=== PATIENT | female | born 1955 | race African-American/Black ===

== ENCOUNTER 2020-02-20 00:34 | Outpatient (CLI) | payer MEDICARE, SELFPAY ==
[2020-02-20 18:51] LABS: SARS-CoV-2 RNA PCR Negative
== END 2020-02-20 00:35 | disposition home or self-care (01) ==
LOC: ANHCOVIDDT 00:34
PROVIDERS: Visit Provider Internal Medicine Gastroenterology
DX: Z01.812 Encounter for preprocedural laboratory examination (principal); Z20.828 Contact with and (suspected) exposure to other viral communicable diseases
CPT/HCPCS: 87635; C9803; U0003

== ENCOUNTER 2020-02-21 12:19 | Outpatient (CLI) | payer MEDICARE, SELFPAY ==
--- NOTE | ~2020-02-21 | MM_ITS ---
CORRECTED REPORT DESCRIPTION CORRECTED. 02/21/2020 EXAMINATION: MM screening mammo BI HISTORY: Screening TECHNIQUE: Craniocaudal and mediolateral oblique 3-D tomosynthesis images were obtained and synthetic 2-D images were generated. CAD analysis was submitted and interpreted. COMPARISON: Comparison to multiple prior studies sequentially, with oldest reviewed study dated 10/25/2012. BREAST PARENCHYMAL COMPOSITION: There are scattered areas of fibroglandular density. FINDINGS: Stable benign-appearing breast calcifications. There is no evidence of suspicious mass, calcification, or architectural distortion to suggest malignancy in either breast. There has been no suspicious interval change. IMPRESSION: 1. No mammographic evidence of malignancy. 2. Recommend routine screening mammography in one year. BI-RADS Category 2: Benign finding(s). Reviewed, dictated and finalized at location D. [employer]ODUCTION ENGINE[employer] MTDD
== END 2020-02-21 12:20 | disposition home or self-care (01) ==
LOC: ANHIMG 12:24
PROVIDERS: Visit Provider Student in an Organized Health Care Education/Training Program
DX: Z12.31 Encounter for screening mammogram for malignant neoplasm of breast (principal)
CPT/HCPCS: 77063; 77067

== ENCOUNTER 2020-02-23 01:26 | Day surgery (SDC) | payer MEDICARE, SELFPAY ==
[2020-02-14 14:59] VITALS: BMI 32.2
[2020-02-23 13:04] LABS: Glucose Point of Care 81 (65-105)
[2020-02-23 13:05] VITALS: BP 179/66; PULSE 70; RESP 20; TEMP 36.8; O2SAT 100; BMI 30.1
[2020-02-23] MEDS: LACTATED RINGERS 1,000 ML 150 ML IV CONT (13:09)
--- NOTE | 2020-02-23 13:20 | WPDANESEPPF ---
Anes - Initial Pre Proc Eval Procedure: Operation Date: 02/23/20 14:00 Proposed Procedures p Screening Colonoscopy - Tomas Temple MD Date/Time: 02/23/20 13:20 Surgeon: Tomas Temple MD Pre Op Diagnosis: Neoplasm Screening Patient Data Age: 65 Gender: F Height: 5 ft 2 in Weight: 74.8 kg Last Vital Signs Temp 98.2 F 02/23/20 13:05 Pulse 70 02/23/20 13:05 Resp 20 02/23/20 13:05 BP 179/66 H 02/23/20 13:05 Pulse Ox 100 02/23/20 13:05 Allergies Allergy/AdvReac Type Severity Reaction Status Date / Time No Known Allergies Allergy Verified 02/23/20 13:04 Home Medications Medication Instructions Recorded Confirmed Type amlodipine 10 mg tablet 10 mg PO DAILY 01/23/20 02/14/20 History atorvastatin 10 mg tablet 10 mg PO DAILY 01/23/20 02/14/20 History empagliflozin 10 mg tablet 10 mg PO DAILY 01/23/20 02/14/20 History hydralazine 10 mg tablet 10 mg PO BID 01/23/20 02/14/20 History hydrochlorothiazide 12.5 mg capsule 12.5 mg PO DAILY 01/23/20 02/14/20 History metformin 500 mg tablet 500 mg PO BID 01/23/20 02/14/20 History montelukast 10 mg tablet 10 mg PO DAILY 01/23/20 02/14/20 History peg 3350 240 gram-electrolytes 240 ml PO Q10M #4000 ml 01/23/20 Rx 22.72 gram-6.72 g-5.84 g powdr for soln pyridoxine (vitamin B6) 50 mg 50 mg PO DAILY 01/23/20 History capsule sodium,potassium,mag sulfates 17.5 354 ml PO .COMPLEX #354 ml 01/30/20 02/14/20 Rx gram-3.13 gram-1.6 gram oral soln metoprolol succinate 50 mg PO DAILY 02/14/20 02/14/20 History Laboratory Tests 02/23/20 13:02 POC Capillary Glucose 81 mg/dl mg/dl (65-105) Patient hx anesthesia problems: none Family hx anesthesia problems: none PMFSH Past Medical History Medical History (Updated 01/23/20 @ 09:48 by Lashawn Conner MA) Asthma Back problem DISH (diffuse idiopathic skeletal hyperostosis) Hyperlipidemia Hypertension Surgical History Surgical History H/O: hysterectomy History of back surgery History of knee surgery Family History Family History (Updated 01/23/20 @ 09:50 by Lashawn Conner MA) Mother Diabetes mellitus, Onset Age: 72 Heart disease Sibling Diabetes mellitus Hypertension Kidney disease Pancreatic disease Father Patient's father is , Onset Age: 68 Acute myocardial infarction Heart disease Social History Social History Smoking status: Never smoker Second hand tobacco smoke exposure: No Alcohol intake: current Alcohol use details: Rarely Substance use type: does not use Living arrangements: alone Spiritual care concerns: No Anes - Eval Final PreProcedure Day of Procedure 02/23/20 13:20 Patient weight: normal Heart: regular rate and rhythm Lungs: clear to auscultation Airway: Mallampati scale class IV (decreased ROM; no extention or lateral rotation; history of difficult intubation) Neurological: alert and oriented Last oral intake: >/= 8 hours ASA classification: III Emergent: no Anesthetic plan: proceed Anesthesia type and monitoring: general GIVS and standard monitoring Informed Consent: The patient's anesthetic plan and its attendant risks and benefits were discussed with the patient/family/POA. Questions were solicited and answers provided to the satisfaction of the patient/family/POA.
--- NOTE | 2020-02-23 13:34 | PM.HPGS ---
History of Present Illness History of Present Illness Consent: Risks, benefits, and alternatives have been discussed and questions answered. Patient agrees to proceed with procedure. Chief complaint: Neoplasm Screening Narrative: Leydi Null is a 65 year old female here for screening colonoscopy, last one 5 years ago. Review of Systems Constitutional: Constitutional: Denies headache(s) and Denies weakness Eyes: Eyes: Denies blurry vision ENT: Reports Normal hearing present, Denies headache(s) and Denies neck pain Cardiovascular: Cardiovascular: Denies chest pain and Denies dyspnea Respiratory: Respiratory: Denies dyspnea Gastrointestinal: Gastrointestinal: Reports no additional gastrointestinal complaints Genitourinary: Genitourinary: Denies dysuria Musculoskeletal: Musculoskeletal: Denies neck pain Integumentary/Breasts: Skin/Breast: Denies dry skin Neurologic: Reports Normal hearing present, Denies headache(s) and Denies weakness Psychiatric: Psychiatric: Denies anxiety Endocrine: Endocrine: Denies change in body appearance Hematologic/Lymphatic: Hematologic/Lymphatic: Denies easy bleeding Allergic/Immunologic: Allergic/Immunologic: Denies urticaria PMFSH Past Medical History Medical History (Updated 02/23/20 @ 13:35 by Tomas Temple MD) Asthma Back problem Colon cancer screening DISH (diffuse idiopathic skeletal hyperostosis) Hyperlipidemia Hypertension Surgical History Surgical History H/O: hysterectomy History of back surgery History of knee surgery Family History Family History (Updated 01/23/20 @ 09:50 by Lashawn Conner MA) Mother Diabetes mellitus, Onset Age: 72 Heart disease Sibling Diabetes mellitus Hypertension Kidney disease Pancreatic disease Father Patient's father is , Onset Age: 68 Acute myocardial infarction Heart disease Social History Social History Smoking status: Never smoker Second hand tobacco smoke exposure: No Alcohol intake: current Alcohol use details: Rarely Substance use type: does not use Living arrangements: alone Spiritual care concerns: No Meds Home Medications and Allergies Home Medications Medication Instructions Recorded Confirmed Type amlodipine 10 mg tablet 10 mg PO DAILY 01/23/20 02/14/20 History atorvastatin 10 mg tablet 10 mg PO DAILY 01/23/20 02/14/20 History empagliflozin 10 mg tablet 10 mg PO DAILY 01/23/20 02/14/20 History hydralazine 10 mg tablet 10 mg PO BID 01/23/20 02/14/20 History hydrochlorothiazide 12.5 mg capsule 12.5 mg PO DAILY 01/23/20 02/14/20 History metformin 500 mg tablet 500 mg PO BID 01/23/20 02/14/20 History montelukast 10 mg tablet 10 mg PO DAILY 01/23/20 02/14/20 History peg 3350 240 gram-electrolytes 240 ml PO Q10M #4000 ml 01/23/20 Rx 22.72 gram-6.72 g-5.84 g powdr for soln pyridoxine (vitamin B6) 50 mg 50 mg PO DAILY 01/23/20 History capsule sodium,potassium,mag sulfates 17.5 354 ml PO .COMPLEX #354 ml 01/30/20 02/14/20 Rx gram-3.13 gram-1.6 gram oral soln metoprolol succinate 50 mg PO DAILY 02/14/20 02/14/20 History Allergies Allergy/AdvReac Type Severity Reaction Status Date / Time No Known Allergies Allergy Verified 02/23/20 13:04 Vital Signs Vital Signs - 24 hr 02/23/20 13:05 Temperature 98.2 F Pulse Rate 70 Respiratory Rate 20 Blood Pressure 179/66 H Pulse Oximetry 100 Exam Const: General: comfortable and no acute distress HENMT: General nose exam: Normal nares present Eyes: General: appearance normal, both eyes and all related structures Neck: Neck: no JVD Resp: Auscultation: clear to auscultation bilaterally Cardio: Rate: regular rate Rhythm: regular rhythm GI: Inspection: non-distended GI Palp: Yes Soft to palpation Skin: General skin exam: normal col
[2020-02-23 13:59] VITALS: BP 106/48; PULSE 76; RESP 21; O2SAT 99
[2020-02-23 14:09] VITALS: BP 153/70; PULSE 77; RESP 23; O2SAT 100
== END 2020-02-23 14:37 | disposition home or self-care (01) ==
PROVIDERS: Visit Provider Internal Medicine Gastroenterology
PROC: 0DJD8ZZ Inspection of Lower Intestinal Tract, Via Natural or Artificial Opening Endoscopic (ICD-10-PCS; CPT 45378; principal; 2020-02-23 14:00)
DX: Z12.11 Encounter for screening for malignant neoplasm of colon (principal); D12.2 Benign neoplasm of ascending colon; Z79.84 Long term (current) use of oral hypoglycemic drugs; J45.909 Unspecified asthma, uncomplicated; M48.10 Ankylosing hyperostosis [Forestier], site unspecified; E78.5 Hyperlipidemia, unspecified; I10 Essential (primary) hypertension; K57.30 Diverticulosis of large intestine without perforation or abscess without bleeding; K64.8 Other hemorrhoids
CPT/HCPCS: 45380; 88305; J2704; J7120

== ENCOUNTER 2020-08-05 10:02 | Outpatient (CLI) | payer MEDICARE, SELFPAY ==
--- NOTE | ~2020-08-05 | DEXA_ITS ---
Bone Density Report Name: Leydi Null Age: 65 Sex: Female Ethnicity: Black Date of : 1955 Indication: monitoring treatment; height loss; prior fracture; asthma or emphysema; hysterectomy; Referring Provider: Brenna Reed Study: Bone densitometry was performed. Exam Date: August 05, 2020 Accession number: [id number] Bone Density: Region BMD T-score Z-score Classification Femoral Neck (Left) 1.006 1.4 1.7 Normal Total Hip (Left) 1.076 1.1 1.3 Normal Total Hip Bilateral Avg 1.054 0.9 1.2 Normal Femoral Neck (Right) 1.043 1.7 2.0 Normal Total Hip (Right) 1.032 0.7 1.1 Normal World Health Organization criteria for BMD impression classify patients as: Normal (T-score at or above -1.0), Osteopenia (T-score between -1.0 and -2.5), or Osteoporosis (T-score at or below -2.5). 10-year Fracture Risk: FRAX not reported because: All T-scores for Spine Total, Hip Total, Femoral Neck at or above -1.0 Prior hip or vertebral fracture Treated for osteoporosis Previous Exams: Region Exam Age BMD T-score BMD Change BMD Change Date g/cm2 vs Baseline vs Previous Total Hip(Left) 08/05/2020 65 1.076 1.1 -0.099(-8.4%)# -0.070(-6.1%)* 01/25/2018 63 1.146 1.7 -0.029(-2.5%)# 0.029(2.6%)# 10/23/2014 59 1.118 1.4 -0.058(-5.0%)* -0.058(-5.0%)* 10/14/2011 56 1.176 1.9 Total Hip(Right) 08/05/2020 65 1.032 0.7 -0.026(-2.4%)# -0.084(-7.5%)* 01/25/2018 63 1.116 1.4 0.058(5.5%)# -0.074(-6.2%)# 10/23/2014 59 1.191 2.0 0.133(12.5%)* 0.133(12.5%)* 10/14/2011 56 1.058 1.0 *Denotes significance at 95% confidence level, LSC for Total Hip = 0.027 g/cm2 Clinical Information Provided by Patient: Have had a previous hip or vertebral fracture Has had a low trauma fracture Is being treated for osteoporosis Has used the following medications: Calcium Has the following medical conditions: Asthma or Emphysema, Hysterectomy, SPINE IS FUSED Patient maximum height was 64 Menopause Age: 44 No regular weight bearing exercise Onset of menses at age 12 Number of children 0 Impression: The patient has normal bone mass. The patient has risk factors, including: previous fracture. The BMD for the Total Hip(Left) decreased, changing by -6.1% since the last DXA exam. The BMD for the Total Hip(Right) decreased, changing by -7.5% since the last DXA exam. Discussion: SIGNIFICANT BONE LOSS OBSERVED. Adherence to therapy (including calcium and vitamin D intake) should be assessed. If compliance
== END 2020-08-05 10:03 | disposition home or self-care (01) ==
LOC: ANHIMG 10:07
PROVIDERS: Visit Provider Student in an Organized Health Care Education/Training Program
DX: Z78.0 Asymptomatic menopausal state (principal)
CPT/HCPCS: 77080

== ENCOUNTER 2020-09-11 12:53 | Outpatient (CLI) | payer MEDICARE, SELFPAY ==
--- NOTE | ~2020-09-11 | US_ITS ---
EXAMINATION: US carotid duplex BI DATE: 09/11/2020 13:25 INDICATION: Carotid bruit TECHNIQUE: Grayscale, color Doppler, and pulsed Doppler images of the cervical carotid arteries were obtained. The degree of vessel stenosis is placed in one of the following categories: normal, <50%, 5 0-69%, >=70% but less than near-occlusion, near-occlusion, or total occlusion. Note that percent sten osis relative to normal distal artery lumen diameter is indirectly measured from velocity measurement s as described by Mc, et al. Radiology 2003; 229:340-346. COMPARISON: None. FINDINGS: RIGHT: The right common carotid artery (CCA) peak systolic velocity (PSV) is 100 cm/s. The right internal ca rotid artery (ICA) PSV is 128 cm/s. The right ICA end-diastolic velocity (EDV) is 19 cm/s. The right ICA/CCA PSV ratio is 1.3. Grayscale and color Doppler images yield an estimate of <50% diameter reduc tion from plaque in the ICA. The external carotid artery (ECA) PSV is 139 cm/s. There is antegrade fl ow in the right vertebral artery. LEFT: The left CCA PSV is 114 cm/s. The left ICA PSV is 130 cm/s. The left ICA EDV is 31 cm/s. The left ICA /CCA PSV ratio is 1.1. Grayscale and color Doppler images yield an estimate of <50% diameter reductio n from plaque in the ICA. The ECA PSV is 85 cm/s. There is antegrade flow in the left vertebral arter y. IMPRESSION: 1. <50% stenosis in the right internal carotid artery. 2. <50% stenosis in the left internal carotid artery. Reviewed, dictated and finalized at location A.
== END 2020-09-11 12:54 | disposition home or self-care (01) ==
DX: R09.89 Other specified symptoms and signs involving the circulatory and respiratory systems (principal); I65.23 Occlusion and stenosis of bilateral carotid arteries
CPT/HCPCS: 93880

== ENCOUNTER 2020-10-13 13:52 | Observation (INO) | payer MEDICARE, SELFPAY ==
[2020-10-13] VITALS (9 sets, daily range): BP systolic 93–151; BP diastolic 37–85; PULSE 70–82; RESP 16–24; TEMP 36.1–36.4; O2SAT 96–100; BMI 30.3
--- NOTE | ~2020-10-13 | XR_ITS ---
EXAMINATION: XR chest 2V DATE: 10/13/2020 15:37 INDICATION: Hypotension and weakness TECHNIQUE: AP and lateral views of the chest are obtained. COMPARISON: 02/04/2013 FINDINGS: There are airspace opacities in the left lower lobe. There is no pleural effusion or pneumo thorax. The cardiomediastinal silhouette is normal. There is moderate thoracic spondylosis. There is posterior thoracolumbar fusion. 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 There are also par tially imaged changes of posterior fusion in the cervical spine. IMPRESSION: 1. Left lower lobe airspace opacities, likely pneumonia. Reviewed, dictated and finalized at location A.
--- NOTE | 2020-10-13 14:17 | ECG_ITS ---
Measurements Intervals [place] Rate: 74 P: 66 ID: [id number] QRS: 20 QRSD: 82 T: 112 QT: 399 QTc: 445 Interpretive Statements SINUS RHYTHM ATRIAL PREMATURE COMPLEXES EARLY PRECORDIAL R/S TRANSITION LEFT VENTRICULAR HYPERTROPHY AND ST-T CHANGE BASELINE ARTIFACT- V6 BORDERLINE ECG Electronically Signed On 10-13-2020 17:46:41 CDT by Jhon Acosta D.O.
[2020-10-13 14:39] LABS: Basophils Percent Auto 0.2 % (0.2-1.2); Eosinophils Percent Auto 0.2 % (0-4.4); Immature Granulocyte Absolute 0.01 K/mm3 (0.00-0.031); Immature Granulocyte Percent A 0.2 % (0-0.5); Lymphocytes Absolute Auto 0.37 K/mm3 (0.9-3.2); Lymphocytes Percent Auto 7.2 % (18.3-44.2); Mean Corpuscular HGB Conc 32.4 g/dl (32-36); Mean Corpuscular Hemoglobin 31.3 pg (26-34); Mean Corpuscular Volume 96.6 fl (80-100); Mean Platelet Volume 11.1 fl (7.4-10.4); Monocytes Absolute Auto 0.3 K/mm3 (0.1-0.6); Monocytes Percent Auto 5.2 % (2.6-8.5); Neutrophils Absolute Auto 4.5 K/mm3 (1.3-6.7); Platelet Count Result 168 k/mm3 (150-375); Red Blood Count 3.52 M/mm3 (4.2-5.4); Red Cell Distribution Width 13.5 % (11.5-14.5); White Blood Count 5.2 K/mm3 (4.5-10.0)
[2020-10-13 14:49] LABS: Alanine Aminotransferase 27 U/L (4-35); Albumin Level 4.1 g/dL (3.5-5.1); Alkaline Phosphatase 65 U/L (38-126); Anion Gap 13 mmol/L (8-16); Aspartate Amino Transferase 50 U/L (14-36); Bilirubin,Total 0.4 mg/dL (0.2-1.3); Blood Urea Nitrogen 40 mg/dL (7-17); Calcium 9.2 mg/dL (8.4-10.2); Carbon Dioxide 20 mmol/L (22-30); Chloride 109 mmol/L (98-107); Estimated CRCL calculation 20 ml/min; Estimated Glomerular Filt Rate 26; Glucose 114 mg/dL (65-110); Potassium 3.8 mmol/L (3.4-5.0); Sodium 142 mmol/L (137-145)
[2020-10-13 15:34] LABS: Add Urine Microscopic? YES; Appearance Urine Turbid (Clear); Bacteria Urine Trace /hpf; Bilirubin Urine Negative (Negative); Blood Urine Negative (Negative); Color Urine Amber (Yellow); Glucose Urine UA 1+ mg/dL (Negative); Hyaline Casts Urine 30-49 /lpf; Ketones Urine Negative (Negative); Leukocyte Esterase Ur Negative LEU/UL (Negative); Mucus Urine Few /lpf; Nitrate Urine Negative (Negative); Protein Urine 2+ mg/dL (Negative); Specific Grav Ur 1.025 (1.001-1.035); Squamous Epithelial Cell Urine Many /hpf (Few)
[2020-10-13] MEDS: SODIUM CHLORIDE 0.9% IV 1,000 ML 999 ML IV CONT (15:45)
--- NOTE | 2020-10-13 17:18 | ED.GENADULT ---
HPI - General Adult General Chief complaint: Weakness Stated complaint: coughing and tired, from [facility] Time Seen by Provider: 10/13/20 15:13 Source: patient History of Present Illness HPI narrative: Patient is a 65 y/o female complaining of cough with some clear phlegm for last 3 days. She took OTC cough medicine, which provide temporary relief. She has some subjective fever, but did not check her temperature. She also feels weak. She has no chest pain or SOB. Related Data Home Medications Medication Instructions Recorded Confirmed amlodipine 10 mg tablet 10 mg PO DAILY 01/23/20 02/14/20 empagliflozin 10 mg tablet 10 mg PO DAILY 01/23/20 02/14/20 hydralazine 10 mg tablet 10 mg PO BID 01/23/20 02/14/20 hydrochlorothiazide 12.5 mg capsule 25 mg PO DAILY 01/23/20 02/14/20 metformin 500 mg tablet 500 mg PO BID 01/23/20 02/14/20 montelukast 10 mg tablet 10 mg PO DAILY 01/23/20 02/14/20 pyridoxine (vitamin B6) 50 mg 50 mg PO DAILY 01/23/20 capsule metoprolol succinate 50 mg PO DAILY 02/14/20 02/14/20 rosuvastatin mg 10/13/20 Allergies Allergy/AdvReac Type Severity Reaction Status Date / Time No Known Allergies Allergy Verified 10/13/20 14:49 Review of Systems Constitutional: Constitutional: Denies chills, Reports fever(s), Denies headache(s) and Reports weakness Eyes: Eyes: Denies blurry vision ENT: Denies headache(s) and Denies neck pain Cardiovascular: Cardiovascular: Denies chest pain and Denies dyspnea Respiratory: Respiratory: Reports cough and Denies dyspnea Gastrointestinal: Gastrointestinal: Denies abdominal pain, Denies diarrhea, Denies nausea and Denies vomiting Genitourinary: Genitourinary: Denies hematuria and Denies dysuria Musculoskeletal: Musculoskeletal: Denies back pain and Denies neck pain Neurologic: Denies headache(s) and Reports weakness PMFSH Past Medical History Medical History Asthma Back problem Colon cancer screening DISH (diffuse idiopathic skeletal hyperostosis) Hyperlipidemia Hypertension Surgical History Surgical History H/O: hysterectomy History of back surgery History of knee surgery Family History Family History Mother Diabetes mellitus, Onset Age: 72 Heart disease Sibling Diabetes mellitus Hypertension Kidney disease Pancreatic disease Father Patient's father is , Onset Age: 68 Acute myocardial infarction Heart disease Social History Social History Smoking status: Never smoker Second hand tobacco smoke exposure: No Alcohol intake: current Alcohol use details: Rarely Substance use type: does not use Gender identity (if verbalized by the patient): Female Spiritual care concerns: No Exam Const: General: no acute distress and well developed Orientation/consciousness: oriented to person, oriented to place, oriented to time and patient oriented x3 HENMT: Head: normocephalic Ears: external ears normal General nose exam: Normal external nose present Eyes: General: appearance normal, both eyes and all related structures Conjunctivae: conjunctivae normal Neck: Neck: normal visual inspection and full ROM Chest: Chest palpation & inspection: normal inspection of the chest and no tenderness Resp: Effort & Inspection: normal respiratory effort Auscultation: clear to auscultation bilaterally Cardio: Rate: regular rate Rhythm: regular rhythm GI: GI Palp: No abdominal tenderness and Yes Soft to palpation Skin: General skin exam: normal color and turgor normal Neuro: General: oriented to person, oriented to place, oriented to time and patient oriented x3 Cognition (Neuro): normal cognition Extrem: General: normal to inspection, full ROM and no pedal edema Psych: Appearance: grossly normal
[2020-10-13 18:18] LABS: Lactic Acid Reflex 0.8 mmol/L (0.7-2.1)
[2020-10-13 18:25] LABS: CRP 8.9 mg/dL (<1.0)
[2020-10-13 18:29] LABS: D Dimer 0.98 ug/mL (<0.48)
--- NOTE | 2020-10-13 20:15 | ADMGEN ---
This patient, Leydi Null, was admitted to [address] [facility] Surg Room 300-01. Patient/family oriented to hospital policies and general routines including ID bracelet, bed and alarms, visiting hours, pain management, procedures, bathroom and other care routines, personal items, smoking policy, room service/diet, and visiting hours. Information on how to activate the Rapid Response Team has been discussed. Patient/Family are encouraged to report perceived risks to care and to ask questions if they do not understand what they are told or what they should do.
[2020-10-13] MEDS: SODIUM CHLORIDE 0.9% IV 1,000 ML 125 ML IV CONT (20:52)
--- NOTE | 2020-10-13 21:32 | PM.IMHP ---
H&P: HPI History of Present Illness Date/Time: 10/13/20 21:32 Chief Complaint: Cough and shortness of breath Narrative: Patient is a 65 y/o female complaining of cough with some clear phlegm for last 3 days. She took OTC cough medicine, which provide temporary relief. She has some subjective fever, but did not check her temperature. She also feels weak. She has no chest pain or SOB. ER evaluation showed normal WBC count but increased creatinine at 2.3 baseline unknown she was vaccinated back in April [place] COVID 19 chest x-ray showed left-sided pneumonia. Admitted for further evaluation and management Review of Systems Constitutional: Constitutional: Denies chills, Reports fever(s), Denies headache(s) and Reports weakness Eyes: Eyes: Denies blurry vision ENT: Denies headache(s) and Denies neck pain Cardiovascular: Cardiovascular: Denies chest pain and Denies dyspnea Respiratory: Respiratory: Reports cough and Denies dyspnea Gastrointestinal: Gastrointestinal: Denies abdominal pain, Denies diarrhea, Denies nausea and Denies vomiting Genitourinary: Genitourinary: Denies hematuria and Denies dysuria Musculoskeletal: Musculoskeletal: Denies back pain and Denies neck pain Neurologic: Denies headache(s) and Reports weakness PMFSH Past Medical History Medical History (Updated 10/14/20 @ 00:15 by Luciano Parisi MD) Asthma Back problem Colon cancer screening DISH (diffuse idiopathic skeletal hyperostosis) Hyperlipidemia Hypertension Surgical History Surgical History H/O: hysterectomy History of back surgery History of knee surgery Family History Family History Mother Diabetes mellitus, Onset Age: 72 Heart disease Sibling Diabetes mellitus Hypertension Kidney disease Pancreatic disease Father Patient's father is , Onset Age: 68 Acute myocardial infarction Heart disease Social History Social History Smoking status: Never smoker Second hand tobacco smoke exposure: No Alcohol intake: current Alcohol use details: Rarely Substance use type: does not use Gender identity (if verbalized by the patient): Female Spiritual care concerns: No Meds Home Medications and Allergies Home Medications Medication Instructions Recorded Confirmed Type amlodipine 10 mg tablet 10 mg PO DAILY 11/10/20 12/02/20 History hydralazine 10 mg tablet 10 mg PO BID 01/23/20 10/13/20 History hydrochlorothiazide 12.5 mg capsule 25 mg PO DAILY 01/23/20 02/14/20 History metformin 500 mg tablet 500 mg PO BID 01/23/20 10/13/20 History montelukast 10 mg tablet 10 mg PO HS 01/23/20 10/13/20 History pyridoxine (vitamin B6) 50 mg 50 mg PO DAILY 01/23/20 10/13/20 History capsule metoprolol succinate 50 mg PO DAILY 02/14/20 10/13/20 History rosuvastatin 20 mg 10/13/20 History Allergies Allergy/AdvReac Type Severity Reaction Status Date / Time No Known Allergies Allergy Verified 10/13/20 14:49 Vital Signs Vital Signs - 24 hr 10/13/20 14:14 10/13/20 14:37 10/13/20 14:38 Temperature 97.0 F L Pulse Rate 76 71 Respiratory Rate 16 Blood Pressure 93/37 L Pulse Oximetry 98 97 10/13/20 14:43 10/13/20 16:45 10/13/20 17:40 Temperature Pulse Rate 70 82 75 Respiratory Rate 24 H 19 20 Blood Pressure 100/45 L 133/73 134/48 L Pulse Oximetry 99 96 99 10/13/20 18:19 10/13/20 19:26 10/13/20 20:00 Temperature 97.5 F L Pulse Rate 70 80 81 Respiratory Rate 19 17 20 Blood Pressure 143/85 H 151/52 H 151/73 H Pulse Oximetry 98 100 96 Exam Const: General: no acute distress and well developed Orientation/consciousness: oriented to person, oriented to place, oriented to time and patient oriented x3 HENMT: Head: normocephalic Ears: external ears normal General nose exam: Normal external nose pre
[2020-10-14] VITALS (9 sets, daily range): BP systolic 122–178; BP diastolic 42–52; PULSE 72–105; RESP 16–20; TEMP 36.2–37.4; O2SAT 90–98
[2020-10-14] MEDS: MONTELUKAST SODIUM 10 MG TABLET PO ×2 (00:55→20:04)
[2020-10-14] MEDS: SODIUM CHLORIDE 0.9% IV 1,000 ML 125 ML IV CONT ×2 (05:54→14:56)
[2020-10-14] MEDS: ENOXAPARIN 30 MG/0.3 ML SYRINGE SUB-Q (08:17)
[2020-10-14] MEDS: hydrALAZINE 10 MG TABLET PO ×2 (08:17→17:43)
[2020-10-14] MEDS: amLODIPine BESYLATE 5 MG TABLET 10 MG PO (08:17)
[2020-10-14] MEDS: METOPROLOL SUCCINATE EXT REL 50 MG TABCR PO (08:18)
[2020-10-14] MEDS: PYRIDOXINE HCL 50 MG TABLET PO (08:20)
[2020-10-14 09:24] LABS: Glucose Point of Care 99 mg/dl (65-105)
[2020-10-14 12:44] LABS: Glucose Point of Care 97 mg/dl (65-105)
[2020-10-14 13:59] LABS: SARS-CoV-2 RNA PCR Positive
[2020-10-14] MEDS: DEXAMETHASONE 2 MG TABLET 6 MG PO (14:57)
--- NOTE | 2020-10-14 16:02 | PM.IMPN ---
Progress Note: A&P Assessment and Plan (1) Pneumonia due to COVID-19 virus: Code(s): U07.1 - COVID-19; J12.82 - Pneumonia due to coronavirus disease 2019 Status: Acute Assessment and Plan: Patient presents with cough, fever and chills starting 10/09; sent from urgent care due to hypotension. COVID-19 positive by PCR this afternoon. CXR shows a left-sided PNA. Discontinue antibiotics. Start dexamethasone as she is still short of breath with coughing. Will hold off on Remdesivir as her oxygen saturations are 90-95% on room air. Can be reconsidered if she requires oxygen. Continue supportive care with albuterol, Robitussin, tylenol for fevers. (2) SUZY (acute kidney injury): Code(s): N17.9 - Acute kidney failure, unspecified Status: Acute Assessment and Plan: Cr 2.3 without previous labs for comparison. May be related to hypoperfusion with hypotension. Hypotension resolved now BPs are high. Monitor renal function and electrolytes. Avoid nephrotoxic agents. Home metformin and HCTZ held. Continue IV fluids, decrease rate. Consider renal ultrasound if not improved tomorrow. (3) Diabetes type 2, controlled: Code(s): E11.9 - Type 2 diabetes mellitus without complications Status: Chronic Assessment and Plan: Check A1c in AM. Hold metformin due to renal function. Continue to monitor with accu-cheks and adjust treatment as needed, cover with SSI. (4) Hypertension: Code(s): I10 - Essential (primary) hypertension Status: Chronic Assessment and Plan: Blood pressures low on arrival, then improved but now elevated this afternoon last 155/46. Continue her home regimen to include hydralazine, metoprolol, norvasc. Monitor BP and adjust treatment as needed. (5) Hyperlipidemia: Code(s): E78.5 - Hyperlipidemia, unspecified Status: Chronic Assessment and Plan: Continue home statin therapy. (6) DISH (diffuse idiopathic skeletal hyperostosis): Code(s): M48.10 - Ankylosing hyperostosis [Forestier], site unspecified Status: Chronic Assessment and Plan: S/p spinal fusions in the past. Stable, no acute issues. Subjective Date/time seen: 10/14/20 16:10 Interval history: Ms. Null is a 65yo F with history of hypertension, type 2 diabetes, and dyslipidemia who is seen in follow up for acute kidney injury. She is found to be positive for COVID-19 this afternoon. She reports she has had a cough starting 4 days ago. She continues with a mildly productive cough today that is leaving her short of breath today. She reports feeling the same today as yesterday. Denies chest pain. Denies nausea, vomiting or abdominal pain. Review of Systems Review of Systems: All systems reviewed & are unremarkable except as noted in HPI and below Exam Narrative: General: Female resting supine in bed in no acute respiratory distress. HEENT: Normocephalic, EOMI, oral mucosa moist. Cardiovascular: Rate and rhythm are regular. No notable murmur, rub, or gallop. Respiratory: Diminished breath sounds L. Respirations even and non-labored. Tolerating room air. Abdomen: Soft, non-tender, non-distended, bowel sounds present. Extremities: Peripheral pulses intact. No edema or pain to palpation. Neuro: Awake and alert; answering questions appropriately. No focal neurological deficits. Speech is clear. Objective Data Vital Signs Vital Signs: Last Vital Signs Temp 99.3 F 10/14/20 16:00 Pulse 93 10/14/20 16:00 Resp 16 10/14/20 16:00 BP 155/46 H 10/14/20 16:00 Pulse Ox 91 10/14/20 16:35 Intake/Output Intake/Output: Intake & Output 10/11/20 10/12/20 10/13/20 10/14/20 23:59 23:59 23
[2020-10-14] MEDS: ALBUTEROL SULFATE (*SP) INHALER 2 PUFF INHALATION ×2 (16:35→19:48)
[2020-10-14] MEDS: guaiFENesin/DEXTROMETHORPHAN 10 ML UDC PO (17:43)
[2020-10-14 17:58] LABS: Glucose Point of Care 113 mg/dl (65-105)
[2020-10-14] MEDS: ROSUVASTATIN 10 MG TABLET 20 MG BY MOUTH (20:04)
[2020-10-14 21:45] LABS: Glucose Point of Care 227 mg/dl (65-105)
[2020-10-15] VITALS: BP 131/44; PULSE 72; RESP 20; TEMP 36.3; O2SAT 93
[2020-10-15] MEDS: SODIUM CHLORIDE 0.9% IV 1,000 ML 75 ML IV CONT (03:46)
[2020-10-15 04:00] VITALS: BP 119/82; PULSE 72; RESP 18; TEMP 36.2; O2SAT 94
[2020-10-15 06:27] LABS: Hematocrit 31.6 % (37.0-47.0); Hemoglobin 10.5 g/dL (12.0-15.0); Immature Granulocyte Absolute 0.06 K/mm3 (0.00-0.031); Immature Granulocyte Percent A 0.6 % (0-0.5); Lymphocytes Absolute Auto 0.35 K/mm3 (0.9-3.2); Lymphocytes Percent Auto 3.6 % (18.3-44.2); Mean Corpuscular HGB Conc 33.2 g/dl (32-36); Mean Corpuscular Hemoglobin 31.3 pg (26-34); Mean Platelet Volume 11.7 fl (7.4-10.4); Monocytes Absolute Auto 0.2 K/mm3 (0.1-0.6); Monocytes Percent Auto 1.8 % (2.6-8.5); Platelet Count Result 152 k/mm3 (150-375); Red Blood Count 3.36 M/mm3 (4.2-5.4); Red Cell Distribution Width 13.2 % (11.5-14.5); White Blood Count 9.6 K/mm3 (4.5-10.0)
[2020-10-15 06:29] LABS: Alanine Aminotransferase 24 U/L (4-35); Albumin Level 3.3 g/dL (3.5-5.1); Alkaline Phosphatase 60 U/L (38-126); Anion Gap 14 mmol/L (8-16); Aspartate Amino Transferase 58 U/L (14-36); Bilirubin,Total 0.4 mg/dL (0.2-1.3); Blood Urea Nitrogen 22 mg/dL (7-17); Calcium 8.8 mg/dL (8.4-10.2); Carbon Dioxide 18 mmol/L (22-30); Chloride 112 mmol/L (98-107); Estimated CRCL calculation 42 ml/min; Estimated Glomerular Filt Rate 60; Glucose 123 mg/dL (65-110); Potassium 3.4 mmol/L (3.4-5.0); Sodium 144 mmol/L (137-145)
[2020-10-15 06:47] LABS: Hemoglobin A1C 5.8 % (<5.7)
[2020-10-15 08:00] VITALS: BP 150/57; PULSE 83; RESP 16; TEMP 36.2; O2SAT 100
[2020-10-15 08:13] LABS: Glucose Point of Care 105 mg/dl (65-105)
[2020-10-15] MEDS: guaiFENesin/DEXTROMETHORPHAN 10 ML UDC PO ×2 (09:00→12:26)
[2020-10-15 09:01] VITALS: PULSE 82
[2020-10-15] MEDS: hydrALAZINE 10 MG TABLET PO (09:01)
[2020-10-15] MEDS: DEXAMETHASONE 2 MG TABLET 6 MG PO (09:01)
[2020-10-15] MEDS: amLODIPine BESYLATE 5 MG TABLET 10 MG PO (09:01)
[2020-10-15] MEDS: METOPROLOL SUCCINATE EXT REL 50 MG TABCR PO (09:01)
[2020-10-15] MEDS: ENOXAPARIN 30 MG/0.3 ML SYRINGE SUB-Q (09:02)
[2020-10-15] MEDS: PYRIDOXINE HCL 50 MG TABLET PO (09:02)
[2020-10-15] MEDS: ALBUTEROL SULFATE (*SP) INHALER 2 PUFF INHALATION ×2 (09:43→12:50)
[2020-10-15 12:00] VITALS: BP 151/44; PULSE 81; RESP 18; TEMP 37.6; O2SAT 92
[2020-10-15 12:15] LABS: Glucose Point of Care 185 mg/dl (65-105)
--- NOTE | 2020-10-15 15:19 | PM.DS ---
DS: Admitting Diagnosis Admitting Diagnosis Cough/ fever DS: Discharge Diagnosis Discharge Diagnosis (1) Pneumonia due to COVID-19 virus: Code(s): U07.1 - COVID-19; J12.82 - Pneumonia due to coronavirus disease 2019 Status: Acute Assessment and Plan: Patient is a 65-year-old woman with a history of hypertension, diabetes, who presented to the emergency room with cough and subjective fevers. The patient was recently at a where there was a suspected positive COVID person. the patient was vaccinated in April for COVID-19. Patient's initial labs showed she was afebrile, non tachycardic, normal respiratory rate, low blood pressure 93/37, normal oxygenation on room air. Initial labs showed slight normocytic anemia with a hemoglobin of 11, elevated D-dimer 0.98, elevated creatinine at 2.3, BUN 40 elevated ferritin and CRP. urinalysis showed no acute signs of infection, it appeared to be a contaminant. CXR showed Left lower lobe airspace opacities, likely pneumonia. Blood culture is negative to date. The patient was found to be positive for COVID 19. She was not requiring any oxygen during her admission. She was improving with her symptoms over a few days and had been started on Dexamethasone. The patient was feeling better and stable for discharge home. Continue Tessalon perls, albuterol inhaler, robitussin and over the counter. (2) SUZY (acute kidney injury): Code(s): N17.9 - Acute kidney failure, unspecified Status: Acute Assessment and Plan: Cr was 2.3 with improvement to 1.1. She is eating and drinking without any issues. (3) Diabetes type 2, controlled: Code(s): E11.9 - Type 2 diabetes mellitus without complications Status: Chronic Assessment and Plan: HgbA1c was 5.8%. Well controlled. Continue metformin. (4) Hypertension: Code(s): I10 - Essential (primary) hypertension Status: Chronic Assessment and Plan: Blood pressures much improved 151/44. Stable. (5) Hyperlipidemia: Code(s): E78.5 - Hyperlipidemia, unspecified Status: Chronic Assessment and Plan: Continue home statin therapy. (6) DISH (diffuse idiopathic skeletal hyperostosis): Code(s): M48.10 - Ankylosing hyperostosis [Forestier], site unspecified Status: Chronic Assessment and Plan: S/p spinal fusions in the past. Stable, no acute issues. DS: Summary Hospital Course Hospital Course: See above Status at Discharge Cognitive/behavioral status at discharge: Stable, improved. Time Spent with Patient Time attestation: Total time spent providing and/or coordinating discharge services: 43 Time spent: Greater than 30 minutes Exam Narrative: General: 65-year-old woman sitting up in the chair talking on the phone. Appears comfortable. In no acute distress. Skin: No jaundice or cyanosis. Good skin turgor. Neck: Full range of motion. Supple. Respiratory: Lungs are clear to auscultation bilaterally. No bony chest wall tenderness. Cardiovascular: The heart has a regular rate and rhythm without murmur. Lower extremities: No lower extremity edema. Distal pulses are easily palpated. No calf tenderness to palpation. Gastrointestinal: The abdomen is soft, nontender and nondistended with active bowel sounds. Psychiatric: Lucid and oriented. Memory intact. Neurologic: No focal deficits. Speech is clear. No facial drooping. DS: Data Data Completed and Pending Labs on day of discharge: Labs from last 24 hours 10/15/20 10/15/20 10/15/20 11:48 08:09 05:24 WBC RBC Hgb Hct MCV MCH MCHC RDW Plt Count MPV Immature Gran % (Auto) Neut %
--- NOTE | 2020-10-15 15:41 | PCPTNOTE ---
Attempted PT eval. Pt being DC'd to home.
[2020-10-15 23:49] LABS: Pneumococcal Antigen Urine Not Detected (Not Detected)
[2020-10-16 16:34] LABS: Legionella pneumophila Ag Ur Not Detected (Not Detected)
[2020-10-17 12:23] LABS: Mycoplasma IgM Antibody Titer 68 U/mL (<770)
== END 2020-10-15 16:43 | disposition home or self-care (01) ==
LOC: ANHED 15:58 → ANH3MEDSUR 18:29
PROVIDERS: Internal Medicine; Physician Assistant; Admitting Provider Hospitalist; Emergency Provider Emergency Medicine; Visit Provider Physician Assistant
DX: U07.1 COVID-19 (principal); J12.82 Pneumonia due to coronavirus disease 2019; N17.9 Acute kidney failure, unspecified; I10 Essential (primary) hypertension; E78.5 Hyperlipidemia, unspecified; M48.10 Ankylosing hyperostosis [Forestier], site unspecified; E11.9 Type 2 diabetes mellitus without complications; Z79.84 Long term (current) use of oral hypoglycemic drugs
CPT/HCPCS: 36415; 71046; 80053; 81001; 82728; 82948; 83036; 83605; 83735; 85025; 85380; 86140; 86738; 87040; 87086; 87449; 87899; 93005; 94640; 96361; 96365; 96367; 96372; 97165; 99285; A9270; C9803; G0378; J0456; J0696; J1650; J7030; J8540; U0003; U0005

== ENCOUNTER 2022-04-15 11:00 | Outpatient (CLI) | payer MEDICARE, SELFPAY ==
--- NOTE | ~2022-04-15 | MM_ITS ---
EXAMINATION: MM screening mammo BI HISTORY: Screening TECHNIQUE: Craniocaudal and mediolateral oblique 3-D tomosynthesis images were obtained and synthetic 2-D images were generated. CAD analysis was submitted and interpreted. COMPARISON: Comparison to multiple prior studies sequentially, with oldest reviewed study dated 10/25. BREAST PARENCHYMAL COMPOSITION: Breast composed of scattered areas of fibroglandular density FINDINGS: The left breast is stable without evidence for malignancy. There is a developing cluster ca lcifications in the lower central aspect of the right breast, middle third. IMPRESSION: 1. Developing cluster of right breast calcifications. 2. Magnification views are recommended. BI-RADS Category 0: Incomplete: Needs additional imaging evaluation. Reviewed, dictated and finalized at location A. R INSTALLER
== END 2022-04-15 11:01 | disposition home or self-care (01) ==
LOC: ANHIMG 11:02
PROVIDERS: Visit Provider Student in an Organized Health Care Education/Training Program
DX: Z12.31 Encounter for screening mammogram for malignant neoplasm of breast (principal); R92.0 Mammographic microcalcification found on diagnostic imaging of breast
CPT/HCPCS: 77067

== ENCOUNTER 2022-05-04 14:11 | Outpatient (CLI) | payer MEDICARE, SELFPAY ==
--- NOTE | ~2022-05-04 | MM_ITS ---
EXAMINATION: MM diagnostic patti RT w richard HISTORY: Developing clustered right breast calcifications were reported on January 13, 2023 screening mammogram TECHNIQUE: Additional ML 3-D tomosynthesis images of the right breast were performed and synthetic 2- D images were generated. ML, MLO and CC magnification views of right breast. CAD analysis was submitt ed and interpreted. COMPARISON: April 15, 2022, February 21, 2020, October 30, 2015bilateral screening mammogram examinat ions FINDINGS: There are scattered benign-appearing microcalcifications including occasional calcified adrián rohematomas, secretory type calcifications and some calcifications likely associated with benign fibr oadenomas. No suspicious microcalcifications are detected. IMPRESSION: 1. No mammographic evidence of malignancy; benign calcifications 2. Routine annual mammographic screening is recommended BI-RADS Category 2: Benign finding(s). Reviewed, dictated and finalized at location A. HT TEST MECHANIC
== END 2022-05-04 14:12 | disposition home or self-care (01) ==
PROVIDERS: Visit Provider Obstetrics & Gynecology
DX: R92.8 Other abnormal and inconclusive findings on diagnostic imaging of breast (principal)
CPT/HCPCS: 77061; 77065; G0279

== ENCOUNTER 2023-11-24 09:34 | Outpatient (CLI) | payer MEDICARE, SELFPAY ==
--- NOTE | ~2023-11-24 | DEXA_ITS ---
Bone Density Report Name: MICHELLE GEORGES Age: 68 Sex: Female Ethnicity: White Date of : 1955 Indication: postmenopausal; screening for osteoporosis; prior fracture; asthma or emphysema; hysterectomy; Referring Provider: CLAUDIA WEBSTER Study: Bone densitometry was performed. Exam Date: November 24, 2023 Accession number: [id number] Bone Density: Region BMD T-score Z-score Classification Femoral Neck (Left) 1.076 2.0 3.9 Normal Total Hip (Left) 1.169 1.9 3.4 Normal Femoral Neck (Right) 1.133 2.6 4.4 Normal Total Hip (Right) 1.071 1.1 2.6 Normal Total Hip Mean 1.120 1.5 3.0 Normal World Health Organization criteria for BMD impression classify patients as: Normal (T-score at or above -1.0), Osteopenia (T-score between -1.0 and -2.5), or Osteoporosis (T-score at or below -2.5). 10-year Fracture Risk: FRAX not reported because: All T-scores for Spine Total, Hip Total, Femoral Neck at or above -1.0 Prior hip or vertebral fracture Previous Exams: Region Exam Age BMD T-score BMD Change BMD Change Date g/cm2 vs Baseline vs Previous Total Hip(Left) 11/24/2023 68 1.169 1.9 -0.007 (-0.6%) 0.092 (8.6%)* 08/05/2020 65 1.076 1.1 -0.099 (-8.4%) -0.070 (-6.1%) 01/25/2018 63 1.146 1.7 -0.029 (-2.5%) 0.029 (2.6%)# 10/23/2014 59 1.118 1.4 -0.058 (-5.0%) -0.058 (-5.0%) 10/14/2011 56 1.176 1.9 Total Hip(Right) 11/24/2023 68 1.071 1.1 0.013 (1.2%)# 0.039 (3.7%)* 08/05/2020 65 1.032 0.7 -0.026 (-2.4%) -0.084 (-7.5%) 01/25/2018 63 1.116 1.4 0.058 (5.5%)# -0.074 (-6.2%) 10/23/2014 59 1.191 2.0 0.133 (12.5%)* 0.133 (12.5%)* 10/14/2011 56 1.058 1.0 *Denotes significance at 95% confidence level, LSC for Total Hip = 0.027 g/cm2 # Denotes dissimilar scan types or analysis methods Clinical Information Provided by Patient: Have had a previous hip or vertebral fracture Has had a low trauma fracture Has used the following medications: Vitamin D, Calcium Has the following medical conditions: Asthma or Emphysema, Hysterectomy Patient maximum height was 63.0 Does not regularly consume dairy products Drinks caffeinated beverages Onset of menses at age 12 Number of children 0 Impression: The patient has normal bone mass. The patient has risk factors, including: previous fracture. No significant bone loss was observed. Discussion: INCREASED RISK OF FRACTURE DUE TO HISTORY OF FRACTURE. The patient's previous fracture puts the
--- NOTE | ~2023-11-24 | MM_ITS ---
EXAMINATION TYPE: MM screening mammo BI COMPARISON: 04/15/2022, 02/21/2020 REASON FOR STUDY: Z12.31 - Encounter for screening mammogram for malignant ... TECHNIQUE: Bilateral mediolateral oblique and craniocaudal views were obtained digitally with CAD. Co mputer-aided detection was utilized in evaluation of this examination. BREAST PARENCHYMAL COMPOSITION:Not Dense. There are scattered areas of fibroglandular density. FINDINGS: The breast tissue distribution pattern is unchanged. There is no suspicious mass, suspicious calcific ations or suspicious architectural distortion. Stable benign calcifications bilaterally. IMPRESSION: No mammographic evidence for malignancy. Routine annual screening mammography advised. BI-RADS CATEGORY: BI-RADS 2: Benign Reviewed, dictated and finalized at [facility]. IMPRESSION: No mammographic evidence for malignancy. Routine annual screening mammography a dvised. BI-RADS CATEGORY: BI-RADS 2: Benign
== END 2023-11-24 09:35 | disposition home or self-care (01) ==
LOC: ANHIMG 09:36
PROVIDERS: Visit Provider Nurse Practitioner Family
DX: Z12.31 Encounter for screening mammogram for malignant neoplasm of breast (principal); Z78.0 Asymptomatic menopausal state
CPT/HCPCS: 77067; 77080

== ENCOUNTER → 2024-05-11 01:45 | Day surgery (SDC) | payer MEDICARE, SELFPAY ==
[2024-04-28 11:26] VITALS: BMI 32.4
[2024-05-11] VITALS (9 sets, daily range): BP systolic 187–229; BP diastolic 49–81; PULSE 59–69; RESP 18; TEMP 35.9; O2SAT 100; BMI 32.5
--- OUTSIDE RECORDS SUMMARY | 2024-05-11 01:48 | XMS_ITS | Referral Summary ---
Author Organization [facility] Address [address] [facility] [place] [address] Care Team Providers Care Program Schedule Clerk Name Role Phone Plummer DO ALMARAZ Larry Cayce Primary Care Provider + Source Comments [facility],non-owned Affiliates and Associated Physician Practices is amultiple site organization consisting of ambulatory clinics and hospital sitesin [place], [place], [place] and [place]. This disclosure is being madepursuant to the Care Everywhere program and may not contain all information available regarding this patient. Last updated 17.[facility] Encounters Date Type Department Care Team Description 03/29/2024 10:00 AM STOPPER SETTER Office Visit [facility] - Orthopedics [address] [place] [phone] Iglesia Barger MD Right shoulder pain, unspecified chronicity (Primary Dx); Tendinopathy of rotator cuff, unspecified laterality; Left shoulder pain, unspecified chronicity; Tear of right rotator cuff, unspecified tear extent, unspecified whether traumatic; Sprain of rotator cuff capsule, unspecified laterality, subsequent encounter 03/16/2024 Telephone [facility] - Centralized Scheduling [facility] [place] [id number] Iglesia Barger MD Appointment (Spk to Leydi, she is looking to reschedule appointment at the [address] [place] [address] for her appointment with Dr Barger. She stated that is her usual location and would like to schedule there. She has an upcoming appointment 03/20/2024 at the [facility] location and is worried about the weather and distance. Please reach out to Leydi to advise if appointment is able to get moved to another location.) from Last 3 Months Allergies Active Allergy Reactions Criticality Noted Date Comments Metformin Unknown 03/17/2024 Medications * Be aware that medications may not be up to date on this document. Alwaysverify current medications with the patient. Medication Sig Dispensed Refills Start Date End Date Status Blood Glucose Monitoring Suppl (ACCU-CHEK RENITA PLUS) w/Device KIT Use every 12 hours 03/29/2018 Active blood glucose test strip Use 1 (one) strip every 12 hours 03/29/2018 Active SOFTCLIX LANCETS MISC Use every 12 hours 03/29/2018 Active JARDIANCE 10 MG tablet Take 1 (one) tablet by mouth once daily 06/11/2019 Active benzonatate (TESSALON) 100 MG capsule Take 1 (one) capsule by mouth 3 times daily as needed 10/15/2020 Active hydrALAZINE (Apresoline) 50 MG tablet Take 1 (one) tablet by mouth every 8 hours 06/27/2021 Active cetirizine (ZyrTEC) 10 MG tablet Take 1 (one) tablet by mouth once daily as needed 07/18/2021 Active atorvastatin (Lipitor) 40 MG tablet Take 1 (one) tablet by mouth once daily 03/25/2021 Active losartan (Cozaar) 25 MG tablet Take 1 (one) tablet by mouth once daily Active albuterol HFA (Proventil; Ventolin; Proair) 108 (90 Base) MCG/ACT inhaler Inhale 2 (two) puffs by mouth every 6 hours as needed for Wheezing, Cough or Shortness of Breath 05/11/2022 Active folic acid (Folvite) 1 MG tablet Take 1 (one) tablet by mouth once daily 09/06/2023 Active hydroCHLOROthiazide (Hydrodiuril) 25 MG tablet Take 1 (one) tablet by mouth once daily 08/06/2023 Active metoprolol succinate XL 24hr (Toprol XL) 50 MG tablet Take 1 (one) tablet by mouth once daily 08/06/2023 Active montelukast (Singulair) 10 MG tablet Take 1 (one) tablet by mouth every evening 05/13/2023 Active ibuprofen (Motrin) 800 MG tablet Take 1 (one) tablet by mouth every 6 hours as needed pain 11/13/2023 Active methylPREDNISolone (Medrol Dosepak) 4 MG tablet Take 1 (one) tablet by mouth as directed 03/17/2024 Active losartan (Cozaar) 50 MG tablet Take 1 (one) tablet by mouth once daily 03/17/2024 Active Active Problems Problem Noted Date Diagnosed Date Disseminated idiopathic skeletal hyperostosis Stage 2 chronic kidney disease 03/29/2024 History of cervical spinal surgery 03/29/2024 Status post lumbar spine operation 03/29/2024 Osteoarthritis of both shoulders 03/29/2024 Osteoarthritis of both knees 03/29/2024 Carotid atherosclerosis 03/29/2024 Essential hypertension 03/29/2024 Mild intermittent asthma 03/29/2024 Urge incontinence of urine 03/29/2024 Bruit of right carotid artery 04/14/2022 Folate deficiency 04/14/2022 Breast nodule 04/14/2022 Acute pain of both shoulders 04/14/2022 Type 2 diabetes mellitus wit h stage 2 chronic kidney disease, without long-term current use of insulin 04/14/2022 Pain in left shoulder 04/14/2022 Atherosclerosis of both carotid arteries 022 CKD (chronic kidney disease), stage II 2 Hypertensive chronic kidney disease with stage 1 through stage 4 chronic kidney disease, or unspecified chronic kidney disease 03/24/2021 History of 2019 novel coronavirus disease (COVID -19) 03/24/2021 Lumbar spondylosis 03/24/2021 Acute pain of left knee 09/30/2020 Bilateral primary osteoarthritis of knee 021 Chronic bilateral low back pain without sciatica 09/30/2020 DISH (diffuse idiopathic skeletal hyperostosis) 09/30/2020 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 09/30/2020 Normocytic anemia 09/30/2020 Other specified symptoms and signs involving the circulatory and respiratory systems 09/30/2020 Overactive bladder 09/30/2020 Other chronic pain 09/30/2020 Urinary urgency 09/30/2020 Benign hypertension 09/30/2020 Essential (primary) hypertension 09/30/2020 Mild intermittent asthma without complication Morbid obesity due to excess calories 08/04/2019 Mononeuritis 08/04/2019 Mild intermittent asthma, uncomplicated 08/04/19 20 Headache 08/04/2019 Breast lump 08/04/2019 Dermatophytosis of body 08/04/2019 Asthma 08/04/2019 Postherpetic neuralgia 08/04/2019 Other specified diseases of hair and hair follic les 08/04/2019 Other chronic allergic conjunctivitis 08/04/2019 Urinary incontinence 08/04/2019 Synovitis and tenosynovitis 08/04/2019 Encounter for screening mamm ogram for malignant neoplasm of breast 08/04/2019 Type 2 or unspecified type diabetes mellitus computer terminal operator (current) use of insulin 08/04/2019 Body mass index (BMI) 34.0-34.9, adult 8 Body mass index (bmi) 34.0-34.9, adult 8 Shoulder pain 10/12/2016 Body mass index (BMI) 35.0-35.9, adult 7 Body mass index (BMI) 35.0-35.9, adult 7 Breast lump 08/17/2016 Morbid obesity 08/17/2016 Body mass index (bmi) 36.0-36.9, adult 7 Synovitis and tenosynovitis 07/29/2015 Pain in thoracic spine 12/17/2014 Thoracic back pain 11/09/2014 Type 2 diabetes mellitus without complication Type 2 diabetes mellitus without complication Screening for condition 08/16/2013 Personal history of fall 08/16/2013 Need for prophylactic vaccin ation with tetanus-diphtheria (Td) 08/16/2013 Type 2 or unspecified type diabetes mellitus, un controlled 02/07/2013 Type II diabetes mellitus, uncontrolled 02/08/20 13 Glucosuria 01/24/2013 Polydipsia 01/24/2013 Nocturia 01/24/2013 Urge incontinence 01/24/2013 Bilateral leg edema 09/06/2012 Rotator cuff (capsule) sprain 08/31/2012 Sagittal plane imbalance 02/22/2012 Pain in joint, shoulder region 11/04/2011 Disorder of bursae and tendons in shoulder regio n 08/28/2011 Disorder of rotator cuff 08/28/2011 Extrinsic asthma 06/26/2011 Mixed hyperlipidemia 06/26/2011 Benign essential hypertension 06/26/2011 Allergic asthma 06/26/2011 Spinal stenosis 12/11/2009 Resolved Problems Problem Noted Date Diagnosed Date Resolved Date Impacted cerumen of left ear 08/04/2019 08/18/2019 Immunizations Name Administration Dates Next Due COVID PFIZER 12+YR 30MCG/0.3mL 11/29/2023 Covid Moderna primary monova lent 12+ yr 0.5mL 05/17/2020,04/19/2020 MODERNA SARS-COV-2 COVID-19 VACCINE 0.25ML 03/19 PNEUMOCOCCAL PCV20 CONJ VAC IM 10/31/2021 PNEUMOCOCCAL PPSV23 08/22/2020,08/22/2020 TD (ADULT), 5 LF TETANUS TOX OID, ADSORBED, PF 08/16/2013 Zoster Hzv Vacc Recombinant Inj Im 11/29/2023,,02/22/2019 Social History Tobacco Use Types Packs/Day Years Used Date Smoking Tobacco: Never Smokeless Tobacco: Never Tobacco Cessation:Counseling Given: Not Answered Alcohol Use Standard Drinks/Week Comments Yes 0 (1 standard drink = 0.6 oz pur e alcohol) PHQ-2 Answer Date Recorded Patient Health Questionnaire-2 Score 1 03/23/2024 Sex and Gender Information Value Date Recorded Sex Assigned at Not on file Gender Identity Not on file Sexual Orientation Not on file Last Filed Vital Signs Vital Sign Reading Time Taken Comments Blood Pressure 126/54 04/14/2022 11:17 AM STOPPER SETTER Pulse 75 04/14/2022 11:17 AM STOPPER SETTER Temperature 36.2 C (97.1 F) 06/28/2020 9:14 AM CDT Respiratory Rate 18 04/14/2022 11:17 AM STOPPER SETTER Oxygen Saturation 98% 04/14/2022 11:17 AM STOPPER SETTER Inhaled Oxygen Concentration - - Weight 78.9 kg (174 lb) 04/16/2023 2:21 PM STOPPER SETTER Height 157.5 cm (5' 2 ) 04/01/2020 9:05 AM STOPPER SETTER Body Mass Index 31.83 04/01/2020 9:05 AM STOPPER SETTER Plan of Treatment Not on file Procedures Procedure Name Priority Date/Time Associated Diagnosis Comments OK DRAIN/INJECT LARGE JOINT/BURSA Routine 03/29/2024 11:14 AM STOPPER SETTER Right shoulder pain, unspecified chronicity Left shoulder pain, unspecified chronicity OK DRAIN/INJECT LARGE JOINT/BURSA Routine 03/29/2024 11:13 AM STOPPER SETTER Right shoulder pain, unspecified chronicity Left shoulder pain, unspecified chronicity from Last 3 Months Results * OK DRAIN/INJECT LARGE JOINT/BURSA (03/29/2024 11:14 AM STOPPER SETTER) Iglesia Roach MD - 03/29/2024 11:14 AM STOPPER SETTER Iglesia Barger MD 03/29/2024 9:06 PM INJECTION PROCEDURE NOTE: The details of the procedure were discussed with the patient including risks and benefits. The patient had a chance to ask questions and gave consent to proceeding. The injection site was marked. A timeout was performed. Under sterile conditions, without complications, tolerated well by the patient, 5 cc ropivacaine and 80 mg (2 cc) triamcinolone were injected into the right subacromial space posteriorly. There was no blood loss. Iglesia Barger MD PROCEDURE/MINOR SURG ICAL ORDERABLES * OK DRAIN/INJECT LARGE JOINT/BURSA (03/29/2024 11:13 AM STOPPER SETTER) Iglesia Roach MD - 03/29/2024 11:13 AM STOPPER SETTER Iglesia Barger MD 03/29/2024 9:06 PM INJECTION PROCEDURE NOTE: The details of the procedure were discussed with the patient including risks and benefits. The patient had a chance to ask questions and gave consent to proceeding. The injection site was marked. A timeout was performed. Under sterile conditions, without complications, tolerated well by the patient, 5 cc ropivacaine and 80 mg (2 cc) triamcinolone were injected into the left subacromial space posteriorly. There was no blood loss. Iglesia Barger MD PROCEDURE/MINOR SURG ICAL ORDERABLES from Last 3 Months Advance Directives Documents on File Type Date Recorded Patient Databases Computer Consultant Expl anation Adv Directive/Living Will/POA 07/24/2009 11:52 AM Care Teams Program Schedule Clerk Relationship Specialty Start Date End Date Aurelio Plummer II, DO [address] [place] [id number] PCP - General Internal Medicine 09/30/20
--- OUTSIDE RECORDS SUMMARY | 2024-05-11 01:48 | XMS_ITS | Clinical Summary ---
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 Gender Identity Not on file Sexual Orientation Not on file Plan of Treatment Health Maintenance Due Date Last Done Comments DEXA Bone Density 1955 Hepatitis C Virus (HCV) Screening 1955 TdaP Immunization 1955 Colonoscopy 1998 Colorectal Cancer Screening 1998 Cologuard 2003 Immunochemical Fecal Occult Blood 2003 Mammogram 2003 Zoster Immunization (2 of 2) 04/19/2019 02/22/2019 Pneumococcal Immunization (5 0+ years) (2 of 2 - PCV) 08/22/2021 08/22/2020 Influenza Immunization (#1) 2023 SARS-COV-2 Immunization ( season) 2023 03/19/2021, 05/17/2020, 04/19/2020 Respiratory Syncytial Virus (RSV) Immunization (Adult) (1 - 1-dose 75+ series) 01/09/2028 Hepatitis B Immunization Aged Out No longer eligible based on patient's age to complete this topic Meningococcal Immunization (ACWY) Aged Out No longer eligible b ased on patient's age to complete this topic Rotavirus Immunization Aged Out No lo nger eligible based on patient's age to complete this topic
--- OUTSIDE RECORDS SUMMARY | 2024-05-11 01:48 | XMS_ITS | Patient Health Summary ---
Author Organization [facility] Webupo Address [address] [place] [address] Care Team Providers Care District Extension Service Agent Name Role Phone Elian DO RUFINAAurelio Primary Care Provider + Note from Formerly named [facility],non-owned Affiliates and Associated Physician Practices is amultiple site organization consisting of ambulatory clinics and hospital sitesin [place], [place], [place] and [place]. This disclosure is being madepursuant to the Care Everywhere program and may not contain all information available regarding this patient. Last updated 17.[facility] Allergies * Metformin(Unknown) * Lisinopril(Unknown),Inactive Medications * Be aware that medications may not be up to date on this document. Alwaysverify current medications with the patient. * Blood Glucose Monitoring Suppl (ACCU-CHEK RENITA PLUS) w/Device KIT(Started 03/29/2018) Use every 12 hours * blood glucose test strip(Started 03/29/2018) Use 1 (one) strip every 12 hours * SOFTCLIX LANCETS MISC(Started 03/29/2018) Use every 12 hours * JARDIANCE 10 MG tablet(Started 06/11/2019) Take 1 (one) tablet by mouth once daily * benzonatate (TESSALON) 100 MG capsule(Started 10/15/2020) Take 1 (one) capsule by mouth 3 times daily as needed * hydrALAZINE (Apresoline) 50 MG tablet(Started 06/27/2021) Take 1 (one) tablet by mouth every 8 hours * cetirizine (ZyrTEC) 10 MG tablet(Started 07/18/2021) Take 1 (one) tablet by mouth once daily as needed * atorvastatin (Lipitor) 40 MG tablet(Started 03/25/2021) Take 1 (one) tablet by mouth once daily * losartan (Cozaar) 25 MG tablet Take 1 (one) tablet by mouth once daily * albuterol HFA (Proventil; Ventolin; Proair) 108 (90 Base) MCG/ACT inhaler (Started 05/11/2022) Inhale 2 (two) puffs by mouth every 6 hours as needed for Wheezing, Cough or Shortness of Breath * folic acid (Folvite) 1 MG tablet(Started 09/06/2023) Take 1 (one) tablet by mouth once daily * hydroCHLOROthiazide (Hydrodiuril) 25 MG tablet(Started 08/06/2023) Take 1 (one) tablet by mouth once daily * metoprolol succinate XL 24hr (Toprol XL) 50 MG tablet(Started 08/06/2023) Take 1 (one) tablet by mouth once daily * montelukast (Singulair) 10 MG tablet(Started 05/13/2023) Take 1 (one) tablet by mouth every evening * ibuprofen (Motrin) 800 MG tablet(Started 11/13/2023) Take 1 (one) tablet by mouth every 6 hours as needed pain * methylPREDNISolone (Medrol Dosepak) 4 MG tablet(Started 03/17/2024) Take 1 (one) tablet by mouth as directed * losartan (Cozaar) 50 MG tablet(Started 03/17/2024) Take 1 (one) tablet by mouth once daily Active Problems Problem Noted Date Diagnosed Date [...] 022 CKD (chronic kidney disease), stage II Hypertensive chronic kidney disease with stage 1 [...] Type 2 or unspecified type 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 08/04/2019 Body [...] cerumen of left ear 08/04/2019 08/18/2019 Immunizations * COVID PFIZER 12+YR 30MCG/0.3mL(Given 11/29/2023) * Covid Moderna primary monovalent 12+ yr 0.5mL(Given 05/17/2020, 04/19/2020) * MODERNA SARS-COV-2 COVID-19 VACCINE 0.25ML(Given 03/19/2021) * PNEUMOCOCCAL PCV20 CONJ VAC IM(Given 10/31/2021) * PNEUMOCOCCAL PPSV23(Given 08/22/2020, 08/22/2020) * TD (ADULT), 5 LF TETANUS TOXOID, ADSORBED, PF(Given 08/16/2013) * Zoster Hzv Vacc Recombinant Inj Im(Given 11/29/2023, 10/31/2021, 02/22/2019) Social History Tobacco Use Types Packs/Day Years [...] Comments Blood Pressure 126/54 04/14/2022 11:17 AM CASUAL SHOE INSPECTOR Pulse 75 04/14/2022 11:17 AM CASUAL SHOE INSPECTOR Temperature 36.2 C (97.1 F) 06/28/2020 9:14 AM CDT Respiratory Rate 18 04/14/2022 11:17 AM CASUAL SHOE INSPECTOR Oxygen Saturation 98% 04/14/2022 11:17 AM CASUAL SHOE INSPECTOR Inhaled Oxygen Concentration - - Weight 78.9 kg (174 lb) 04/16/2023 2:21 PM CASUAL SHOE INSPECTOR Height 157.5 cm (5' 2 ) 04/01/2020 9:05 AM CASUAL SHOE INSPECTOR Body Mass Index 31.83 04/01/2020 9:05 AM CASUAL SHOE INSPECTOR Procedures * MS DRAIN/INJECT LARGE JOINT/BURSA(Performed 03/29/2024) Performed for Right shoulder pain, unspecified chronicity, Left shoulder pain, unspecified chronicity * MS DRAIN/INJECT LARGE JOINT/BURSA(Performed 03/29/2024) Performed for Right shoulder pain, unspecified chronicity, Left shoulder pain, unspecified chronicity * XR SHOULDER LEFT 2VW OR MORE(Performed 10/20/2023) Performed for Left shoulder pain, unspecified chronicity * XR SHOULDER RIGHT 2VW OR MORE(Performed 10/20/2023) Performed for Tendinopathy of rotator cuff, unspecified laterality * MS DRAIN/INJECT LARGE JOINT/BURSA(Performed 10/20/2023) Performed for Left shoulder pain, unspecified chronicity * MS DRAIN/INJECT LARGE JOINT/BURSA(Performed 10/20/2023) Performed for Tendinopathy of rotator cuff, unspecified laterality * MS DRAIN/INJECT LARGE JOINT/BURSA(Performed 04/16/2023) Performed for Tendinopathy of rotator cuff, unspecified laterality * MS DRAIN/INJECT LARGE JOINT/BURSA(Performed 04/16/2023) Performed for Tendinopathy of rotator cuff, unspecified laterality * MS DRAIN/INJECT LARGE JOINT/BURSA(Performed 06/10/2022) Performed for Right shoulder pain, unspecified chronicity * MS DRAIN/INJECT LARGE JOINT/BURSA(Performed 06/10/2022) Performed for Left shoulder pain, unspecified chronicity * MS DRAIN/INJECT LARGE JOINT/BURSA(Performed 04/14/2022) Performed for Primary osteoarthritis of left knee, Primary osteoarthritis of right knee * MS DRAIN/INJECT LARGE JOINT/BURSA(Performed 04/14/2022) Performed for Primary osteoarthritis of left knee, Primary osteoarthritis of right knee * US JOINT INJECTION OR ASPIRATE(Performed 04/14/2022) Performed for Primary osteoarthritis of left knee * US JOINT INJECTION OR ASPIRATE(Performed 04/14/2022) Performed for Primary osteoarthritis of right knee * MS DRAIN/INJECT LARGE JOINT/BURSA(Performed 02/11/2022) Performed for Tear of right rotator cuff, unspecified tear extent, unspecified whether traumatic * MS DRAIN/INJECT LARGE JOINT/BURSA(Performed 02/11/2022) Performed for Tear of right rotator cuff, unspecified tear extent, unspecified whether traumatic * MS DRAIN/INJECT LARGE JOINT/BURSA(Performed 10/08/2021) Performed for Left shoulder pain, unspecified chronicity * MS DRAIN/INJECT LARGE JOINT/BURSA(Performed 10/08/2021) Performed for Right shoulder pain, unspecified chronicity * MS DRAIN/INJECT LARGE JOINT/BURSA(Performed 03/24/2021) Performed for Primary osteoarthritis of left knee, Primary osteoarthritis of right knee * MS DRAIN/INJECT LARGE JOINT/BURSA(Performed 03/24/2021) Performed for Primary osteoarthritis of left knee, Primary osteoarthritis of right knee * US JOINT INJECTION OR ASPIRATE(Performed 03/24/2021) Performed for Primary osteoarthritis of right knee * US JOINT INJECTION OR ASPIRATE(Performed 03/24/2021) Performed for Primary osteoarthritis of left knee * MS DRAIN/INJECT LARGE JOINT/BURSA(Performed 03/05/2021) Performed for Tear of right rotator cuff, unspecified tear extent, unspecified whether traumatic, Right shoulder pain, unspecified chronicity * MS DRAIN/INJECT LARGE JOINT/BURSA(Performed 03/05/2021) Performed for Sprain of rotator cuff capsule, unspecified laterality, subsequent encounter, Left shoulder pain, unspecified chronicity * XR SKULL TO ANKLE BARRETT(Performed 11/07/2020) Performed for Back pain, unspecified back location, unspecified back pain laterality, unspecified chronicity * MS DRAIN/INJECT LARGE JOINT/BURSA(Performed 09/30/2020) Performed for Primary osteoarthritis of left knee * MS DRAIN/INJECT LARGE JOINT/BURSA(Performed 09/30/2020) Performed for Primary osteoarthritis of right knee * US JOINT INJECTION OR ASPIRATE(Performed 09/30/2020) Performed for Primary osteoarthritis of right knee * US JOINT INJECTION OR ASPIRATE(Performed 09/30/2020) Performed for Primary osteoarthritis of left knee * US JOINT INJECTION OR ASPIRATE(Performed 06/28/2020) Performed for Primary osteoarthritis of right knee * US JOINT INJECTION OR ASPIRATE(Performed 06/28/2020) Performed for Primary osteoarthritis of left knee * XR KNEE RIGHT 4VW OR MORE(Performed 06/28/2020) Performed for Right knee pain, unspecified chronicity * MS DRAIN/INJECT LARGE JOINT/BURSA(Performed 06/27/2020) Performed for Left shoulder pain, unspecified chronicity * MS DRAIN/INJECT LARGE JOINT/BURSA(Performed 06/27/2020) Performed for Tear of right rotator cuff, unspecified tear extent, unspecified whether traumatic * MS DRAIN/INJECT LARGE JOINT/BURSA(Performed 04/02/2020) Performed for Pain in both knees, unspecified chronicity * US JOINT INJECTION OR ASPIRATE(Performed 04/01/2020) Performed for Pain in both knees, unspecified chronicity * CULTURE FLUID+GRAM STAIN(Performed 04/01/2020) Performed for Primary osteoarthritis of left knee, Effusion of left knee joint * PATHOLOGY SMEAR BODY FLUID(Performed 04/01/2020) Performed for Primary osteoarthritis of left knee, Effusion of left knee joint * CRYSTAL INDENTIFICATION SYNOVIAL FLUID(Performed 04/01/2020) Performed for Primary osteoarthritis of left knee, Effusion of left knee joint * DIFFERENTIAL MANUAL FLUID(Performed 04/01/2020) Performed for Primary osteoarthritis of left knee, Effusion of left knee joint * CELL COUNT W DIFF W CRYSTALS SYNOVIAL(Performed 04/01/2020) Performed for Primary osteoarthritis of left knee, Effusion of left knee joint * XR KNEE LEFT 4VW OR MORE(Performed 04/01/2020) Performed for Left knee pain, unspecified chronicity * MS DRAIN/INJECT LARGE JOINT/BURSA(Performed 11/23/2019) Performed for Sprain of rotator cuff capsule, unspecified laterality, subsequent encounter * MS DRAIN/INJECT LARGE JOINT/BURSA(Performed 11/23/2019) Performed for Sprain of rotator cuff capsule, unspecified laterality, subsequent encounter * MS DRAIN/INJECT LARGE JOINT/BURSA(Performed 08/09/2019) Performed for Right shoulder pain, unspecified chronicity * MS DRAIN/INJECT LARGE JOINT/BURSA(Performed 08/09/2019) Performed for Left shoulder pain, unspecified chronicity * XR SHOULDER RIGHT 2VW OR MORE(Performed 08/09/2019) Performed for Right shoulder pain, unspecified chronicity * MS DRAIN/INJECT LARGE JOINT/BURSA(Performed 11/16/2018) Performed for Left shoulder pain, unspecified chronicity * MS DRAIN/INJECT LARGE JOINT/BURSA(Performed 11/16/2018) Performed for Right shoulder pain, unspecified chronicity * XR SHOULDER LEFT 2VW OR MORE(Performed 11/16/2018) Performed for Left shoulder pain, unspecified chronicity * XR SPINE ENTIRE 2 OR 3VW(Performed 11/03/2018) Performed for Back pain, unspecified back location, unspecified back pain laterality, unspecified chronicity * XR CERVICAL SPINE 2 OR 3VW(Performed 11/03/2018) Performed for Back pain, unspecified back location, unspecified back pain laterality, unspecified chronicity * XR SPINE ENTIRE 2 OR 3VW(Performed 08/18/2018) Performed for Scoliosis, unspecified scoliosis type, unspecified spinal region * XR CERVICAL SPINE 2 OR 3VW(Performed 08/18/2018) Performed for Follow up * XR SPINE ENTIRE 2 OR 3VW(Performed 09/13/2017) Performed for Follow up * XR SHOULDER LEFT 2VW OR MORE(Performed 10/20/2016) * XR SHOULDER RIGHT 2VW OR MORE(Performed 10/20/2016) * XR SPINE ENTIRE 2 OR 3VW(Performed 02/10/2016) * XR CERVICAL SPINE 2 OR 3VW(Performed 02/10/2016) * XR THORACOLUMBAR SPINE 2VW(Performed 02/10/2016) * NM BONE SCAN WHOLE BODY(Performed 11/15/2014) * XR CERVICAL SPINE 2 OR 3VW(Performed 11/12/2014) * XR SCOLIOSIS 1VW(Performed 11/12/2014) * XR SCOLIOSIS 1VW(Performed 07/09/2014) * XR CERVICAL SPINE 2 OR 3VW(Performed 07/09/2014) * XR SCOLIOSIS 1VW(Performed 2014) * URINALYSIS - POINT OF CARE (AMB) SLU(Performed 01/24/2013) * CULTURE URINE COMPREHENSIVE(Performed 01/24/2013) * XR SCOLIOSIS 1VW(Performed 12/19/2012) * VAS BILATERAL VENOUS DUPLEX LE(Performed 09/13/2012) * MRI SHOULDER LEFT WO CONTRAST(Performed 06/20/2012) * XR SCOLIOSIS 1VW(Performed 06/17/2012) * XR SCOLIOSIS 1VW(Performed 02/22/2012) * XR SHOULDER LEFT 2VW OR MORE(Performed 02/22/2012) * XR SHOULDER LEFT 2VW OR MORE(Performed 10/14/2011) * XR SCOLIOSIS 1VW(Performed 08/24/2011) * LAB MICROBIOLOGY - HPF HISTORICAL(Performed 10/31/2009) * LAB MICROBIOLOGY - HPF HISTORICAL(Performed 10/30/2009) * LAB MICROBIOLOGY - HPF HISTORICAL(Performed 10/14/2009) * LAB MICROBIOLOGY - HPF HISTORICAL(Performed 10/12/2009) * LAB MICROBIOLOGY - HPF HISTORICAL(Performed 10/09/2009) * GROSS + MICRO EXAM(Performed 10/15/1997) Results * MS DRAIN/INJECT LARGE JOINT/BURSA (03/29/2024 11:14 AM CASUAL SHOE INSPECTOR) Narrative Iglesia Barger MD - 03/29/2024 11:14 AM CASUAL SHOE INSPECTOR Iglesia Barger MD 03/29/2024 9:06 PM INJECTION [...] Barger MD PROCEDURE/MINOR SURG ICAL ORDERABLES * MS DRAIN/INJECT LARGE JOINT/BURSA (03/29/2024 11:13 AM CASUAL SHOE INSPECTOR) Narrative Iglesia Barger MD - 03/29/2024 11:13 AM CASUAL SHOE INSPECTOR Iglesia Barger MD 03/29/2024 9:06 PM INJECTION [...] Barger MD PROCEDURE/MINOR SURG ICAL ORDERABLES * XR Shoulder Left 2Vw or More (10/20/2023 11:24 AM CDT) Only the most recent of5 resultswithin the time period is included. Anatomical Region Laterality Modality Upper Extremity Radiographic Saskia ging 10/20/2023 11:3 5 AM CDT Impressions 10/20/2023 11:35 AM CDT IMPRESSION: Multiple large enthesophytes which could reflect a seronegative spondyloarthropathy or diffuse idiopathic skeletal hyperostosis. > Interpreting Provider: Thad Carballo MD on 10/20/2023 11:35 AM Narrative 10/20/2023 11:35 AM CDT PROCEDURE: XR SHOULDER LEFT 2VW OR MORE DATE/TIME OF EXAM: 10/20/2023 11:24 AM CLINICAL INFORMATION: None relevant/not provided if blank. Indication: M25.512: Left shoulder pain, unspecified chronicity Additional History: COMPARISON: 11/16/2018. FINDINGS: Right shoulder: No acute fracture or dislocation is seen. The glenohumeral joint space is normal. There is mild acromioclavicular degenerative change. There are multiple large bone spurs/enthesophytes including at the inferior aspect of the glenoid, greater tuberosity of the humerus, medial and lateral aspects of the humeral shaft, acromion process, distal clavicle, and coracoid process. Left shoulder: No fracture or dislocation is seen. The glenohumeral joint space is normal. There is mild acromioclavicular degenerative change. As on the right, there are multiple large bone spurs/enthesophytes around the shoulder. Instrumented thoracic spinal fusion is noted. Procedure Note Thad Carballo MD - 10/20/2023 PROCEDURE: XR SHOULDER LEFT 2VW OR MORE DATE/TIME OF EXAM: 10/20/2023 11:24 AM CLINICAL INFORMATION: None relevant/not provided if blank. Indication: M25.512: Left shoulder pain, unspecified chronicity Additional History: COMPARISON: 11/16/2018. FINDINGS: Right shoulder: No acute fracture or dislocation is seen. The glenohumeral joint spaceis normal. There is mild acromioclavicular degenerative change. There are multiple large bone spurs/enthesophytes including at the inferior aspectof the glenoid, greater tuberosity of the humerus, medial and lateralaspects of the humeral shaft, acromion process, distal clavicle, and coracoid process. Left shoulder: No fracture or dislocation is seen. The glenohumeral joint space isnormal. There is mild acromioclavicular degenerative change. As on the right,there are multiple large bone spurs/enthesophytes around the shoulder. Instrumented thoracic spinal fusion is noted. IMPRESSION: Multiple large enthesophytes which could reflect aseronegative spondyloarthropathy or diffuse idiopathic skeletal hyperostosis. > Interpreting Provider: Thad Carballo MD on 10/20/2023 11:35 AM Iglesia Barger MD DIAGNOSTIC IMAGING O RDERABLES * XR Shoulder Right 2Vw or More (10/20/2023 11:24 AM CDT) Only the most recent of3 resultswithin the time period is included. Anatomical Region Laterality Modality Upper Extremity Radiographic Saskia ging 10/20/2023 11:2 5 AM CDT Impressions 10/20/2023 11:31 AM CDT IMPRESSION: Multiple large enthesophytes which could reflect a seronegative spondyloarthropathy or diffuse idiopathic skeletal hyperostosis. > Interpreting Provider: Thad Carballo MD on 10/20/2023 11:31 AM Narrative 10/20/2023 11:31 AM CDT PROCEDURE: XR SHOULDER RIGHT 2VW OR MORE DATE/TIME OF EXAM: 10/20/2023 11:24 AM CLINICAL INFORMATION: None relevant/not provided if blank. Indication: M67.919: Tendinopathy of rotator cuff, unspecified laterality Additional History: COMPARISON: 08/09/2019. FINDINGS: Right shoulder: No acute fracture or dislocation is seen. The glenohumeral joint space is normal. There is mild acromioclavicular degenerative change. There are multiple large bone spurs/enthesophytes including at the inferior aspect of the glenoid, greater tuberosity of the humerus, medial and lateral aspects of the humeral shaft, acromion process, distal clavicle, and coracoid process. Left shoulder: No fracture or dislocation is seen. The glenohumeral joint space is normal. There is mild acromioclavicular degenerative change. As on the right, there are multiple large bone spurs/enthesophytes around the shoulder. Instrumented thoracic spinal fusion is noted. Procedure Note Thad Carballo MD - 10/20/2023 PROCEDURE: XR SHOULDER RIGHT 2VW OR MORE DATE/TIME OF EXAM: 10/20/2023 11:24 AM CLINICAL INFORMATION: None relevant/not provided if blank. Indication: M67.919: Tendinopathy of rotator cuff, unspecifiedlaterality Additional History: COMPARISON: 08/09/2019. FINDINGS: Right shoulder: No acute fracture or dislocation is seen. The glenohumeral joint spaceis normal. There is mild acromioclavicular degenerative change. There are multiple large bone spurs/enthesophytes including at the inferior aspectof the glenoid, greater tuberosity of the humerus, medial and lateralaspects of the humeral shaft, acromion process, distal clavicle, and coracoid process. Left shoulder: No fracture or dislocation is seen. The glenohumeral joint space isnormal. There is mild acromioclavicular degenerative change. As on the right,there are multiple large bone spurs/enthesophytes around the shoulder. Instrumented thoracic spinal fusion is noted. IMPRESSION: Multiple large enthesophytes which could reflect aseronegative spondyloarthropathy or diffuse idiopathic skeletal hyperostosis. > Interpreting Provider: Thad Carballo MD on 10/20/2023 11:31 AM Iglesia Barger MD DIAGNOSTIC IMAGING O RDERABLES * MS DRAIN/INJECT LARGE JOINT/BURSA (10/20/2023 11:06 AM CDT) Iglesia Roach MD - 10/20/2023 11:06 AM CDT Iglesia Barger MD 10/20/2023 11:07 AM INJECTION PROCEDURE NOTE: The details of the [...] injected into the right subacromial space posteriorly. Iglesia Barger MD PROCEDURE/MINOR SURG ICAL ORDERABLES * MS DRAIN/INJECT LARGE JOINT/BURSA (10/20/2023 11:05 AM CDT) Iglesia Roach MD - 10/20/2023 11:05 AM CDT Iglesia Barger MD 10/20/2023 11:06 AM INJECTION PROCEDURE NOTE: The details of the [...] injected into the left subacromial space posteriorly. Iglesia Bagrer MD PROCEDURE/MINOR SURG ICAL ORDERABLES * MS DRAIN/INJECT LARGE JOINT/BURSA (04/16/2023 2:53 PM CASUAL SHOE INSPECTOR) Narrative Dionne King PA-C - 04/16/2023 2:53 PM CASUAL SHOE INSPECTOR Dionne King PA-C 04/16/2023 3:34 PM Injection shoulder The patient was offered a cortisone injection into the left shoulder. After discussing the risks and benefits of the procedure, the patient elected to proceed. After sterile preparation, the left shoulder was injected subacromial with a combination in One syringe: 4mL ropivacaine or lidocaine (5mg/mL) + 2ml Kenalog (40mg/mL). The patient tolerated the procedure well without complication. There was zero blood loss. Dionne King PA-C PROCEDURE/MINOR SURG ICAL ORDERABLES * MS DRAIN/INJECT LARGE JOINT/BURSA (04/16/2023 2:53 PM CASUAL SHOE INSPECTOR) Dionne Suarez PA-C - 04/16/2023 2:53 PM CASUAL SHOE INSPECTOR Dionne King PA-C 04/16/2023 3:34 PM Injection shoulder The patient was offered a cortisone injection into the right shoulder. After discussing the risks and benefits of the procedure, the patient elected to proceed. After sterile preparation, the right shoulder was injected subacromial with a combination in One syringe: 4mL ropivacaine or lidocaine (5mg/mL) + 2ml Kenalog (40mg/mL). The patient tolerated the procedure well without complication. There was zero blood loss. Dionne King PA-C PROCEDURE/MINOR SURG ICAL ORDERABLES * MS DRAIN/INJECT LARGE JOINT/BURSA (06/10/2022 10:46 AM CDT) Narrative Iglesia Barger MD - 06/10/2022 10:46 AM CDT Iglesia Barger MD 06/10/2022 10:46 AM INJECTION PROCEDURE NOTE: The injection site was marked. A timeout was performed. Under sterile conditions, without complications, tolerated well by the patient, 4 cc ropivacaine and 80 mg (2 cc) triamcinolone were injected into the right subacromial space posteriorly. Iglesia Barger MD PROCEDURE/MINOR SURG ICAL ORDERABLES * MS DRAIN/INJECT LARGE JOINT/BURSA (06/10/2022 10:45 AM CDT) Narrative Iglesia Baregr MD - 06/10/2022 10:45 AM CDT Iglesia Barger MD 06/10/2022 10:46 AM INJECTION PROCEDURE NOTE: The injection site was marked. A timeout was performed. Under sterile conditions, without complications, tolerated well by the patient, 4 cc ropivacaine and 80 mg (2 cc) triamcinolone were injected into the left subacromial space posteriorly. Iglesia Barger MD PROCEDURE/MINOR SURG ICAL ORDERABLES * MS DRAIN/INJECT LARGE JOINT/BURSA, MS DRAIN/INJECT LARGE JOINT/BURSA (04/14/2022 11:59 AM CASUAL SHOE INSPECTOR) Narrative Francis Tompkins III, MD - 04/14/2022 11:59 AM CASUAL SHOE INSPECTOR Francis Tompkins III, MD 04/14/2022 1:52 PM Consent Given by: patient Indications: pain Local Anesthesia Used?: Yes Joint Location: Knee Knee Laterality & Site: R knee and L knee Prep: patient was prepped and draped in usual sterile fashion Needle Size: 22 G Medications ordered and administration documented through clinic-administered medications activity. Patient tolerance: Patient tolerated the procedure well with no immediate complications Francis Tompkins III, MD PROCEDURE/MIN OR SURGICAL ORDERABLES * US JOINT INJECTION OR ASPIRATE (04/14/2022 11:38 AM CASUAL SHOE INSPECTOR) Only the most recent of9 resultswithin the time period is included. Narrative [facility] - 04/14/2022 11:38 AM CASUAL SHOE INSPECTOR This procedure was performed by an Orthopedic physician in a clinic setting. Please see the procedure note. Francis Tompkins III, MD US ORDERABLES [facility] * MS DRAIN/INJECT LARGE JOINT/BURSA (02/11/2022 1:04 PM CASUAL SHOE INSPECTOR) Narrative Iglesia Barger MD - 02/11/2022 1:04 PM CASUAL SHOE INSPECTOR Iglesia Barger MD 02/11/2022 7:39 PM INJECTION PROCEDURE NOTE: The injection site was marked. A timeout was performed. Under sterile conditions, without complications, tolerated well by the patient, 4 cc ropivacaine and 80 mg (2 cc) triamcinolone were injected into the left subacromial space posteriorly. Iglesia Barger MD PROCEDURE/MINOR SURG ICAL ORDERABLES * MS DRAIN/INJECT LARGE JOINT/BURSA (02/11/2022 1:04 PM CASUAL SHOE INSPECTOR) Narrative Iglesia Barger MD - 02/11/2022 1:04 PM CASUAL SHOE INSPECTOR Iglesia Barger MD 02/11/2022 7:39 PM INJECTION PROCEDURE NOTE: The injection site was marked. A timeout was performed. Under sterile conditions, without complications, tolerated well by the patient, 4 cc ropivacaine and 80 mg (2 cc) triamcinolone were injected into the right subacromial space posteriorly. Iglesia Barger MD PROCEDURE/MINOR SURG ICAL ORDERABLES * MS DRAIN/INJECT LARGE JOINT/BURSA (10/08/2021 1:26 PM CDT) Iglesia Roach MD - 10/08/2021 1:26 PM CDT Iglesia Barger MD 10/08/2021 4:52 PM INJECTION PROCEDURE NOTE: The injection site was marked. A timeout was performed. Under sterile conditions, without complications, tolerated well by the patient, 4 cc ropivacaine and 80 mg (2 cc) triamcinolone were injected into the left subacromial space posteriorly. Iglesia Barger MD PROCEDURE/MINOR SURG ICAL ORDERABLES * MS DRAIN/INJECT LARGE JOINT/BURSA (10/08/2021 1:26 PM CDT) Iglesia Roach MD - 10/08/2021 1:26 PM CDT Iglesia Barger MD 10/08/2021 4:52 PM INJECTION PROCEDURE NOTE: The injection site was marked. A timeout was performed. Under sterile conditions, without complications, tolerated well by the patient, 4 cc ropivacaine and 80 mg (2 cc) triamcinolone were injected into the right subacromial space posteriorly. Iglesia Barger MD PROCEDURE/MINOR SURG ICAL ORDERABLES * MS DRAIN/INJECT LARGE JOINT/BURSA, MS DRAIN/INJECT LARGE JOINT/BURSA (03/24/2021 4:25 PM CASUAL SHOE INSPECTOR) Narrative Francis Tompkins III, MD - 03/24/2021 4:25 PM CASUAL SHOE INSPECTOR Francis Tompkins III, MD 03/24/2021 4:27 PM Consent Given by: patient Indications: pain Local Anesthesia Used?: Yes Joint Location: Knee Knee Laterality & Site: R knee and L knee Prep: patient was prepped and draped in usual sterile fashion Needle Size: 22 G Medications ordered and administration documented through clinic-administered medications activity. Patient tolerance: Patient tolerated the procedure well with no immediate complications Francis Tompkins III, MD PROCEDURE/MIN OR SURGICAL ORDERABLES * MS DRAIN/INJECT LARGE JOINT/BURSA (03/05/2021 11:36 AM CASUAL SHOE INSPECTOR) Iglesia Roach MD - 03/05/2021 11:36 AM CASUAL SHOE INSPECTOR Iglesia Barger MD 03/06/2021 7:28 AM INJECTION PROCEDURE NOTE: The injection site was marked. A timeout was performed. Under sterile conditions, without complications, tolerated well by the patient, 4 cc ropivacaine and 80 mg (2 cc) triamcinolone were injected into the right subacromial space posteriorly. Iglesia Barger MD PROCEDURE/MINOR SURG ICAL ORDERABLES * MS DRAIN/INJECT LARGE JOINT/BURSA (03/05/2021 11:35 AM CASUAL SHOE INSPECTOR) Narrative Iglesia Barger MD - 03/05/2021 11:35 AM CASUAL SHOE INSPECTOR Iglesia Barger MD 03/06/2021 7:28 AM INJECTION PROCEDURE NOTE: The injection site was marked. A timeout was performed. Under sterile conditions, without complications, tolerated well by the patient, 4 cc ropivacaine and 80 mg (2 cc) triamcinolone were injected into the left subacromial space posteriorly. Iglesia Barger MD PROCEDURE/MINOR SURG ICAL ORDERABLES * XR SKULL TO ANKLE BARRETT (11/07/2020 3:26 PM CDT) Anatomical Region Laterality Modality Radiographic Saskia ging 11/07/2020 4:48 PM CDT Impressions 11/07/2020 4:52 PM CDT Impression: 1. Instrumented occipital cervical spinal fusion with fractured rods. 2. Posterior instrumented spinal fusion from T4 to S1 without change. This report was electronically signed by VINNY BILLINGS on 11/07/2020 4:52 PM . Narrative 11/07/2020 4:52 PM CDT Examination: XR SKULL TO ANKLE BARRETT History: M54.9: Back pain, unspecified back location, unspecified back pain laterality, unspecified chronicity Findings:Comparison to 11/03/2018. There is unchanged to occipital cervical spinal fusion with fractured rods. There is also posterior instrumented spinal fusion from T4 to S1 with vertical rods, laminar hooks and pedicular screws. There is multilevel spinal degenerative disc disease. There is moderate anterior sagittal and mild rightward coronal imbalance. No pelvic tilt. There are enthesophytes at the pelvis and right femur. Procedure Note Vinny Billings MD - 11/07/2020 Examination: XR SKULL TO ANKLE BARRETT History: M54.9: Back pain, unspecified back location, unspecified back pain laterality, unspecified chronicity Findings:Comparison to 11/03/2018. There is unchanged to occipital cervical spinal fusion with fractured rods. There is also posterior instrumented spinal fusion from T4 to S1 with vertical rods, laminar hooks and pedicular screws. There is multilevel spinal degenerative disc disease. There is moderate anterior sagittal and mild rightward coronal imbalance. No pelvic tilt. There are enthesophytes at the pelvis and right femur. Impression: 1. Instrumented occipital cervical spinal fusion with fractured rods. 2. Posterior instrumented spinal fusion from T4 to S1 without change. This report was electronically signed by VINNY BILLINGS on 11/07/2020 4:52PM . Ignacio Reyes MD DIAGNOSTIC IMAGING O RDERABLES * MS DRAIN/INJECT LARGE JOINT/BURSA (09/30/2020 1:51 PM CDT) Narrative Francis Tompkins III, MD - 09/30/2020 1:51 PM CDT Francis Tompkins III, MD 09/30/2020 1:54 PM Consent Given by: patient Indications: pain Local Anesthesia Used?: Yes Joint Location: Knee Knee Laterality & Site: L knee Preparation: Injection site cleaned with Chloraprep. Needle Size: 22 G Medications ordered and administration documented through clinic-administered medications activity. Patient tolerance: Patient tolerated the procedure well with no immediate complications Francis Tompkins III, MD PROCEDURE/MIN OR SURGICAL ORDERABLES * MS DRAIN/INJECT LARGE JOINT/BURSA (09/30/2020 1:50 PM CDT) Narrative Francis Tompkins III, MD - 09/30/2020 1:50 PM CDT Francis Tompkins III, MD 09/30/2020 1:54 PM Consent Given by: patient Indications: pain Local Anesthesia Used?: Yes Joint Location: Knee Knee Laterality & Site: R knee Preparation: Injection site cleaned with Chloraprep. Needle Size: 22 G Medications ordered and administration documented through clinic-administered medications activity. Patient tolerance: Patient tolerated the procedure well with no immediate complications Francis Tompkins III, MD PROCEDURE/MIN OR SURGICAL ORDERABLES * XR KNEE RIGHT 4VW OR MORE (06/28/2020 9:24 AM CDT) Anatomical Region Laterality Modality Lower Extremity Radiographic Saskia ging 06/28/2020 9:27 AM CDT Impressions 06/28/2020 9:51 AM CDT IMPRESSION: 1.Substantial spurring of tibial tuberosity and patella may be from remote prior trauma/injury. 2.Mild to moderate changes of the knee, unchanged. 3. Small effusion. Dictated by Quyen Sung DO (resident). I, Dr. THAD CARBALLO MD have personally reviewed and interpreted this examination/study. This report was electronically signed by THAD CARBALLO MD on 06/28/2020 9:51 AM . Narrative 06/28/2020 9:51 AM CDT ORDER DATE: 06/28/2020 9:25 AM EXAMINATION: XR KNEE RIGHT 4VW HISTORY: M25.561: Right knee pain, unspecified chronicity COMPARISON: Right knee radiographs from 01/27/2011 FINDINGS: There is no acute fracture or dislocation. There is mild tricompartment joint space narrowing, unchanged from 2010. There is substantial spurring of the tibial tuberosity and patella. There is a 1.4 cm calcification medial to the medial femoral condyle. Mild chronic deformity of the proximal fibula are redemonstrated. No erosions are seen. A small joint effusion is identified. No soft tissue swelling is present. Vascular calcifications are noted. Procedure Note Thad Carballo MD - 06/28/2020 ORDER DATE: 06/28/2020 9:25 AM EXAMINATION: XR KNEE RIGHT 4VW HISTORY: M25.561: Right knee pain, unspecified chronicity COMPARISON: Right knee radiographs from 01/27/2011 FINDINGS: There is no acute fracture or dislocation. There is mild tricompartment joint space narrowing, unchanged from 2011. There is substantialspurring of the tibial tuberosity and patella. There is a 1.4 cm calcification medial to the medial femoral condyle. Mild chronic deformity of the proximal fibula are redemonstrated. No erosions are seen. A small joint effusion is identified. No soft tissue swelling is present. Vascular calcifications are noted. IMPRESSION: 1.Substantial spurring of tibial tuberosity and patella may be fromremote prior trauma/injury. 2.Mild to moderate changes of the knee, unchanged. 3. Small effusion. Dictated by Quyen Sung DO (resident). I, Dr. THAD CARBALLO MD have personally reviewed and interpreted this examination/study. This report was electronically signed by THAD CARBALLO MD on06/28/2020 9:51 AM . Francis Tompkins III, MD DIAGNOSTIC IM AGING ORDERABLES * MS DRAIN/INJECT LARGE JOINT/BURSA (06/27/2020 2:32 PM CDT) Iglesia Roach MD - 06/27/2020 2:32 PM CDT Iglesia Barger MD 06/27/2020 2:32 PM INJECTION PROCEDURE NOTE: The injection site was marked. A timeout was performed. Under sterile conditions, without complications, tolerated well by the patient, 4 cc ropivacaine and 80 mg (2 cc) triamcinolone were injected into the left subacromial space posteriorly. Iglesia Barger MD PROCEDURE/MINOR SURG ICAL ORDERABLES * MS DRAIN/INJECT LARGE JOINT/BURSA (06/27/2020 2:31 PM CDT) Iglesia Roach MD - 06/27/2020 2:31 PM CDT Iglesia Barger MD 06/27/2020 2:32 PM INJECTION PROCEDURE NOTE: The injection site was marked. A timeout was performed. Under sterile conditions, without complications, tolerated well by the patient, 4 cc ropivacaine and 80 mg (2 cc) triamcinolone were injected into the right subacromial space posteriorly. Iglesia Barger MD PROCEDURE/MINOR SURG ICAL ORDERABLES * MS DRAIN/INJECT LARGE JOINT/BURSA (04/02/2020 9:22 AM CASUAL SHOE INSPECTOR) Francis Springer III, MD - 04/02/2020 9:22 AM CASUAL SHOE INSPECTOR Francis Tompkins III, MD 04/02/2020 9:24 AM After discussion of risks, benefits, and alternatives, the patient agreed to ultrasound guided aspiration/corticosteroid injection. The left suprapatellar recess was identified using ultrasound. The area was marked and cleaned in the usual sterile fashion using Chloraprep. Ethyl chloride for topical anesthesia. The aspiration/injection was performed at the left suprapatellar recess with ultrasound guidance using 0.5% ropivacaine and 40 mg of Kenalog. Approximately 5 mL clear straw-colored synovial fluid was aspirated initially. This was well tolerated. Francis Tompkins III, MD PROCEDURE/MIN OR SURGICAL ORDERABLES * CULTURE FLUID+GRAM STAIN (04/01/2020 11:09 AM CASUAL SHOE INSPECTOR) Culture No growth DAVE 04/04/2020 4:09 PM CASUAL SHOE INSPECTOR [facility] Gram Stain Moderate Polymorphonuclear cells 04/04/2020 4:09 PM CASUAL SHOE INSPECTOR [facility] Gram Stain No organisms seen 021 4:09 PM CASUAL SHOE INSPECTOR [facility] Fluid SYNOVIAL FLUID / Unknown Collection / Unknown 04/01/2020 11:09 AM CASUAL SHOE INSPECTOR 04/01/2020 11:09 AM CASUAL SHOE INSPECTOR Francis Tompkins III, MD LAB - MICROBI OLOGY ORDERABLES Performing Organization Address City/[facility]/ZIP Co de Phone Number [facility] [address] [place] [address], [facility] [phone] * CRYSTAL INDENTIFICATION SYNOVIAL FLUID (04/01/2020 11:08 AM CASUAL SHOE INSPECTOR) Crystal Exam Fluid No crystals seen. To be reviewed by pathologist. 04/01/2020 2:55 PM CASUAL SHOE INSPECTOR [facility] Fluid SYNOVIAL FLUID / Unknown Collection / Unknown 04/01/2020 11:08 AM CASUAL SHOE INSPECTOR 04/01/2020 11:09 AM CASUAL SHOE INSPECTOR Francis Tompkins III, MD LAB - BODY FL UID ORDERABLES [facility] [address] [place] [address], [facility] [phone] * PATHOLOGY SMEAR BODY FLUID (04/01/2020 11:08 AM CASUAL SHOE INSPECTOR) Pathology Diff Review DIFFERENTIAL REVIEW - CONFIRMED DIFFERENTIAL REVIEW - CONFIRMED 04/02/2020 12:35 PM [facility] Comment: Final Diagnosis: Synovial fluid, smear: - Chronic inflammation - Negative for crystals Clinical History: The patient is 65-year old female with left knee pain for 2 months suspecting for left knee osteoarthritis. Assessment: Review of the morphologic and differential count of the synovial fluid smear confirms the differential data. The synovial fluid has predominant chronic inflammatory cells in the background of peripheral blood elements. Investigation under polarized light reveals no crystals. Preliminary blood cultures are pending. Clinical correlation is advised. Fluid SYNOVIAL FLUID / Unknown Collection / Unknown 04/01/2020 11:08 AM CASUAL SHOE INSPECTOR 04/01/2020 11:09 AM CASUAL SHOE INSPECTOR Francis Tompkins III, MD LAB - PATHOLO GY/CYTOLOGY ORDERABLES Performing Organization Address [facility]/ZIP Co de Phone Number [address] [address], [facility] [phone] * DIFFERENTIAL MANUAL FLUID (04/01/2020 11:08 AM CASUAL SHOE INSPECTOR) Lymphocytes % Fluid 13 % 04/01/2020 2:55 PM [facility] Monocytes % Fluid 30 % 04/01/2020 2:55 PM [facility] Macrophages % Fluid 57 % 04/01/2020 2:55 PM [facility] Fluid SYNOVIAL FLUID / Unknown Collection / Unknown 04/01/2020 11:08 AM CASUAL SHOE INSPECTOR 04/01/2020 11:09 AM CASUAL SHOE INSPECTOR Francis Tompkins III, MD LAB - BODY FL UID ORDERABLES Performing Organization Address [facility] Co de Phone Number [address] [address], [facility] [phone] * (ABNORMAL) CELL COUNT W DIFF W CRYSTALS SYNOVIAL (04/01/2020 11:08 AM CASUAL SHOE INSPECTOR) Color Fluid Yellow(A) Colorles s, Straw 04/01/2020 2:51 PM [facility] Clarity Fluid Turbid(A) Clear 04/01/2020 2:51 PM [facility] Volume Fluid 2.0 mL 04/01/2020 2:51 PM [facility] Viscosity Decreased 04/01/2020 2:51 PM [facility] WBC Fluid 4,055(H) 0 - 200 /uL 04/01/2020 2:51 PM [facility] RBC Fluid 1,000(H) 0 /uL 04/01/2020 2:51 PM [facility] Crystal Exam Fluid Crystal examination to follow. 04/01/2020 2:51 PM [facility] Comment:This is an appended report. These results have been appended to a previously final verified report. Differential Manual Differential to follow. 04/01/2020 2:51 PM [facility] Fluid SYNOVIAL FLUID / Unknown Collection / Unknown 04/01/2020 11:08 AM CASUAL SHOE INSPECTOR 04/01/2020 11:09 AM CASUAL SHOE INSPECTOR Narrative [facility] - 04/01/2020 2:51 PM CASUAL SHOE INSPECTOR No reference ranges established for body fluid cell counts. The reference ranges provided are derived from published literature. The test results must be integrated into the clinical context for interpretation. Francis Tompkins III, MD LAB - BODY FL UID ORDERABLES [facility] [address] [place] [address], [facility] [phone] * XR KNEE LEFT 4VW OR MORE (04/01/2020 9:21 AM CASUAL SHOE INSPECTOR) Anatomical Region Laterality Modality Lower Extremity Radiographic Saskia ging 04/01/2020 10:2 0 AM CASUAL SHOE INSPECTOR Impressions 04/01/2020 10:35 AM CASUAL SHOE INSPECTOR IMPRESSION: Mild osteoarthritis. Dictated by Jose Maria Rivera MD (cmo & president). I, Dr. THAD CARBALLO MD have personally reviewed and interpreted this examination/study. This report was electronically signed by THAD CARBALLO MD on 04/01/2020 10:35 AM . Narrative 04/01/2020 10:35 AM CASUAL SHOE INSPECTOR EXAMINATION: XR KNEE LEFT 4VW HISTORY: M25.562: Left knee pain, unspecified chronicity COMPARISON: None FINDINGS: No acute fracture or dislocation is present. There is mild osteoarthritis mainly involving the lateral and patellofemoral compartments. There are large enthesophytes at the tibial tuberosity and inferior aspect of the patella, and a moderate sized enthesophyte is seen at the superior aspect of the patella. No erosions are seen. There is no effusion. Vascular calcification is noted. Procedure Note Thad Carballo MD - 04/01/2020 EXAMINATION: XR KNEE LEFT 4VW HISTORY: M25.562: Left knee pain, unspecified chronicity COMPARISON: None FINDINGS: No acute fracture or dislocation is present. There is mildosteoarthritis mainly involving the lateral and patellofemoral compartments. There are large enthesophytes at the tibial tuberosity and inferior aspect of the patella, and a moderate sized enthesophyte is seen at the superioraspect of the patella. No erosions are seen. There is no effusion. Vascular calcification is noted. IMPRESSION: Mild osteoarthritis. Dictated by Jose Maria Rivera MD (cmo & president). I, Dr. THAD CARBALLO MD have personally reviewed and interpreted this examination/study. This report was electronically signed by THAD CARBALLO MD on04/01/2020 10:35 AM . Francis Tompkins III, MD DIAGNOSTIC IM AGING ORDERABLES * MS DRAIN/INJECT LARGE JOINT/BURSA (11/23/2019 12:07 PM CDT) Iglesia Roach MD - 11/23/2019 12:07 PM CDT Iglesia Barger MD 11/23/2019 12:07 PM INJECTION PROCEDURE NOTE: The injection site was marked. A timeout was performed. Under sterile conditions, without complications, tolerated well by the patient, 4 cc ropivacaine and 80 mg (2 cc) triamcinolone were injected into the right subacromial space posteriorly. Iglesia Barger MD PROCEDURE/MINOR SURG ICAL ORDERABLES * MS DRAIN/INJECT LARGE JOINT/BURSA (11/23/2019 12:07 PM CDT) Iglesia Roach MD - 11/23/2019 12:07 PM CDT Iglesia Barger MD 11/23/2019 12:07 PM INJECTION PROCEDURE NOTE: The injection site was marked. A timeout was performed. Under sterile conditions, without complications, tolerated well by the patient, 4 cc ropivacaine and 80 mg (2 cc) triamcinolone were injected into the left subacromial space posteriorly. Iglesia Barger MD PROCEDURE/MINOR SURG ICAL ORDERABLES * MS DRAIN/INJECT LARGE JOINT/BURSA (08/09/2019 2:21 PM CDT) Iglesia Roach MD - 08/09/2019 2:21 PM CDT Iglesia Barger MD 08/09/2019 2:21 PM INJECTION PROCEDURE NOTE: The injection site was marked. A timeout was performed. Under sterile conditions, without complications, tolerated well by the patient, 4 cc ropivacaine and 80 mg (2 cc) triamcinolone were injected into the right subacromial space posteriorly. Iglesia Barger MD PROCEDURE/MINOR SURG ICAL ORDERABLES * MS DRAIN/INJECT LARGE JOINT/BURSA (08/09/2019 2:20 PM CDT) Iglesia Roach MD - 08/09/2019 2:20 PM CDT Iglesia Barger MD 08/09/2019 2:20 PM INJECTION PROCEDURE NOTE: The injection site was marked. A timeout was performed. Under sterile conditions, without complications, tolerated well by the patient, 4 cc ropivacaine and 80 mg (2 cc) triamcinolone were injected into the left subacromial space posteriorly. Iglesia Brager MD PROCEDURE/MINOR SURG ICAL ORDERABLES * MS DRAIN/INJECT LARGE JOINT/BURSA (11/16/2018 11:31 AM CDT) Iglesia Roach MD - 11/16/2018 11:31 AM CDT Iglesia Barger MD 11/16/2018 11:31 AM INJECTION PROCEDURE NOTE: The injection site was marked. A timeout was performed. Under sterile conditions, without complications, tolerated well by the patient, 4 cc ropivacaine and 80 mg (2 cc) triamcinolone were injected into the right subacromial space posteriorly. Iglesia Barger MD PROCEDURE/MINOR SURG ICAL ORDERABLES * MS DRAIN/INJECT LARGE JOINT/BURSA (11/16/2018 11:30 AM CDT) Iglesia Roach MD - 11/16/2018 11:30 AM CDT Iglesia Barger MD 11/16/2018 11:31 AM INJECTION PROCEDURE NOTE: The injection site was marked. A timeout was performed. Under sterile conditions, without complications, tolerated well by the patient, 4 cc ropivacaine and 80 mg (2 cc) triamcinolone were injected into the left subacromial space posteriorly. Iglesia Barger MD PROCEDURE/MINOR SURG ICAL ORDERABLES * XR SPINE ENTIRE 2 OR 3VW (11/03/2018 8:56 AM CDT) Only the most recent of4 resultswithin the time period is included. Anatomical Region Laterality Modality Radiographic Saskia ging 11/03/2018 9:07 AM CDT Impressions 11/03/2018 9:13 AM CDT IMPRESSION: 1. Cervical spine: Instrumented occipital-cervical spinal fusion. Both rods remain broken. 2. The entire spine: Instrumented posterior fusion from T4 to S1 redemonstrated with intact hardware. This report was electronically signed by THAD CARBALLO MD on 11/03/2018 9:13 AM . Narrative 11/03/2018 9:13 AM CDT Exam: 1. XR SPINE ENTIRE 2 view 2. XR CERVICAL SPINE 2 view History: back pain Comparison: Cervical and entire spine radiographs dated 08/18/2018. Findings: Cervical spine: C6 and C7 are mostly obscured on the lateral view. There is occipital-cervical spinal fusion extending from the occiput to C6 with rods and screws. Both rods remain broken. The vertebral alignment is unchanged. Degenerative changes are noted. Entire spine: As noted above there is occipital cervical spinal fusion with broken rods. Additionally there is instrumented posterior spinal fusion extending from T4 to S1 with parallel rods, hooks, and screws. This hardware is intact. Degenerative changes are noted. Sagittal and coronal plane imbalance are again demonstrated. Enthesophytes are noted at the pelvis and right femur. Procedure Note Thad Carballo MD - 11/03/2018 Exam: 1. XR SPINE ENTIRE 2 view 2. XR CERVICAL SPINE 2 view History: back pain Comparison: Cervical and entire spine radiographs dated 08/18/2018. Findings: Cervical spine: C6 and C7 are mostly obscured on the lateral view. There is occipital-cervical spinal fusion extending from the occiput to C6 with rods and screws. Both rods remain broken. The vertebral alignment is unchanged. Degenerative changes are noted. Entire spine: As noted above there is occipital cervical spinal fusion with brokenrods. Additionally there is instrumented posterior spinal fusion extendingfrom T4 to S1 with parallel rods, hooks, and screws. This hardware is intact. Degenerative changes are noted. Sagittal and coronal plane imbalance are again demonstrated. Enthesophytes are noted at the pelvis and rightfemur. IMPRESSION: 1. Cervical spine: Instrumented occipital-cervical spinal fusion. Both rods remain broken. 2. The entire spine: Instrumented posterior fusion from T4 to S1 redemonstrated with intact hardware. This report was electronically signed by THAD CARBALLO MD on11/03/2018 9:13 AM . Ignacio Reyes MD DIAGNOSTIC IMAGING O RDERABLES * XR CERVICAL SPINE 2 OR 3VW (11/03/2018 8:48 AM CDT) Only the most recent of5 resultswithin the time period is included. Anatomical Region Laterality Modality Spine Radiographic Saskia ging 11/03/2018 9:07 AM CDT Impressions 11/03/2018 9:13 AM CDT IMPRESSION: 1. Cervical spine: Instrumented occipital-cervical spinal fusion. Both rods remain broken. 2. The entire spine: Instrumented posterior fusion from T4 to S1 redemonstrated with intact hardware. This report was electronically signed by THAD CARBALLO MD on 11/03/2018 9:13 AM . Narrative 11/03/2018 9:13 AM CDT Exam: 1. XR SPINE ENTIRE 2 view 2. XR CERVICAL SPINE 2 view History: back pain Comparison: Cervical and entire spine radiographs dated 08/18/2018. Findings: Cervical spine: C6 and C7 are mostly obscured on the lateral view. There is occipital-cervical spinal fusion extending from the occiput to C6 with rods and screws. Both rods remain broken. The vertebral alignment is unchanged. Degenerative changes are noted. Entire spine: As noted above there is occipital cervical spinal fusion with broken rods. Additionally there is instrumented posterior spinal fusion extending from T4 to S1 with parallel rods, hooks, and screws. This hardware is intact. Degenerative changes are noted. Sagittal and coronal plane imbalance are again demonstrated. Enthesophytes are noted at the pelvis and right femur. Procedure Note Thad Carballo MD - 11/03/2018 Exam: 1. XR SPINE ENTIRE 2 view 2. XR CERVICAL SPINE 2 view History: back pain Comparison: Cervical and entire spine radiographs dated 08/18/2018. Findings: Cervical spine: C6 and C7 are mostly obscured on the lateral view. There is occipital-cervical spinal fusion extending from the occiput to C6 with rods and screws. Both rods remain broken. The vertebral alignment is unchanged. Degenerative changes are noted. Entire spine: As noted above there is occipital cervical spinal fusion with brokenrods. Additionally there is instrumented posterior spinal fusion extendingfrom T4 to S1 with parallel rods, hooks, and screws. This hardware is intact. Degenerative changes are noted. Sagittal and coronal plane imbalance are again demonstrated. Enthesophytes are noted at the pelvis and rightfemur. IMPRESSION: 1. Cervical spine: Instrumented occipital-cervical spinal fusion. Both rods remain broken. 2. The entire spine: Instrumented posterior fusion from T4 to S1 redemonstrated with intact hardware. This report was electronically signed by THAD CARBALLO MD on11/03/2018 9:13 AM . Ignacio Reyes MD DIAGNOSTIC IMAGING O RDERABLES * XR THORACOLUMBAR SPINE 2VW (02/10/2016 10:18 AM CASUAL SHOE INSPECTOR) Anatomical Region Laterality Modality Spine Other Impressions 02/10/2016 10:54 AM CASUAL SHOE INSPECTOR IMPRESSION: 1. Redemonstration of instrumented occipital cervical spinal fusion with fractures of both vertical rods, unchanged. 2. Instrumented spinal fusion from T4 through S1 with intact hardware. 3. Forward sagittal plane imbalance. Dictated by Willy Post MD (Choir Director). I, Dr. THAD CARBALLO MD have personally reviewed and interpreted this examination/study. This report was electronically signed by THAD CARBALLO MD on 02/10/2016 10:54 AM . Narrative 02/10/2016 10:54 AM CASUAL SHOE INSPECTOR EXAMINATION: 1. XR SPINE THORACOLUMBAR 2 VWS, 2. XR SPINE CERVICAL 2 OR 3 VIEWS, 3. XR SPINE ENTIRE 2-3 VW DATE: 02/10/2016 10:19 AM HISTORY: follow up, scoliosis post fusion COMPARISON: Comparison is made with thoracolumbar spine radiographs dated 02/23/2011, cervical spine radiographs dated 11/12/2014, and scoliosis radiographs dated 11/12/2014. FINDINGS: Cervical spine: Postsurgical changes of occipitocervical fusion with fractured left vertical bety at the level of C1 and right vertical bety at C2-C3 are redemonstrated. The C7 vertebral body is obscured by the overlying structures and C6 vertebral body is partially obscured on the lateral view. No acute fracture or compression deformity is identified. The intervertebral disc spaces mildly narrowed at C3-4. There is anterior bridging ossification across multiple disc spaces. Thoracolumbar spine: The posterior spinal fusion instrumentation extending from T4 to S1 with paired vertical rods, pedicle screws, and laminar hooks appears intact. There is bridging ligamentous ossification and/or syndesmophyte formation across multiple disc spaces, with relative preservation of the disc space heights. No acute fracture is identified. There are atherosclerotic vascular calcifications of the abdominal aorta. Scoliosis radiographs: As noted above, there is occipital cervical instrumented spinal fusion, with fractures of both vertical rods. There is also instrumented spinal fusion extending from T4 to S1 with intact hardware. There is forward sagittal imbalance with the sagittal vertical axis measuring +15 cm. There is mild rightward coronal plane imbalance. Lumbar laminectomy defects are noted. There is extensive pelvic enthesopathy. There is no significant scoliosis. Procedure Note Thad Carballo MD - 06/12/2017 EXAMINATION: 1. XR SPINE THORACOLUMBAR 2 VWS, 2. XR SPINE CERVICAL 2 OR 3 VIEWS, 3. XR SPINE ENTIRE 2-3 VW DATE: 02/10/2016 10:19 AM HISTORY: follow up, scoliosis post fusion COMPARISON: Comparison is made with thoracolumbar spine radiographs dated104/26/2010, cervical spine radiographs dated 11/12/2014, and scoliosisradiographs dated 11/12/2014. FINDINGS: Cervical spine: Postsurgical changes of occipitocervical fusion with fractured leftvertical bety at the level of C1 and right vertical bety at C2-C3 areredemonstrated. The C7 vertebral body is obscured by the overlyingstructures and C6 vertebral body is partially obscured on the lateral view. No acute fracture or compression deformityis identified. The intervertebral disc spaces mildly narrowed at C3-4.There is anterior bridging ossification across multiple disc spaces. Thoracolumbar spine: The posterior spinal fusion instrumentation extending from T4 to S1 withpaired vertical rods, pedicle screws, and laminar hooks appears intact.There is bridging ligamentous ossification and/or syndesmophyte formationacross multiple disc spaces, with relative preservation of the disc space heights. No acute fracture isidentified. There are atherosclerotic vascular calcifications of theabdominal aorta. Scoliosis radiographs: As noted above, there is occipital cervical instrumented spinal fusion,with fractures of both vertical rods. There is also instrumented spinalfusion extending from T4 to S1 with intact hardware. There is forwardsagittal imbalance with the sagittal vertical axis measuring +15 cm. There is mild rightward coronal planeimbalance. Lumbar laminectomy defects are noted. There is extensive pelvicenthesopathy. There is no significant scoliosis. IMPRESSION IMPRESSION: 1. Redemonstration of instrumented occipital cervical spinal fusion withfractures of both vertical rods, unchanged. 2. Instrumented spinal fusion from T4 through S1 with intact hardware. 3. Forward sagittal plane imbalance. Dictated by Willy Post MD (Choir Director). Dr. THAD Aj MD have personally reviewed and interpreted thisexamination/study. This report was electronically signed by THAD CARBALLO MD on02/10/2016 10:54 AM . Ignacio Reyes MD DIAGNOSTIC IMAGING O RDERABLES * NM BONE SCAN WHOLE BODY (11/15/2014 2:29 PM CDT) Anatomical Region Laterality Modality Abdomen Other Impressions 11/15/2014 4:57 PM CDT Impression: 1. Unremarkable postsurgical changes throughout the spine. 2. Degenerative changes seen in shoulders, hips, knees, ankles and feet bilateral. This report was approved by Debbie Cowan M.D. on 11/15/2014 4:[address] GÉNESIS Aj M.D. have personally reviewed and interpreted this examination/study. This report was electronically signed by GÉNESIS YUNG M.D. on 11/15/2014 4:57 PM . Narrative 11/15/2014 4:57 PM CDT Procedure: Whole Body Bone Scan History: 59-year-old female with a history of thoracolumbar sclerosis status post instrumentation. Technique: 26.3 mCi of Tc-99m MDP was injected IV in the left hand. Anterior and posterior planar whole-body images and static views of head, neck, thoracic spine and pelvis were obtained 2 hours after tracer injection. Findings: Comparison was made with the prior spine x-ray dated 11/12/2014. Intense diffused activity along the cervical and thoracic spine, corresponding with surgical history and instrumentation finding in prior spine x-rays. Moderate increased activity in both shoulders, hips, knees, ankles, and feet. The remaining skeleton shows physiological tracer distribution physiological kidneys uptake. Procedure Note Génesis Yung MD - 06/12/2017 Procedure: Whole Body Bone Scan History: 59-year-old female with a history of thoracolumbar sclerosisstatus post instrumentation. Technique: 26.3 mCi of Tc-99m MDP was injected IV in the left hand. Anterior andposterior planar whole-body images and static views of head, neck,thoracic spine and pelvis were obtained 2 hours after tracer injection. Findings: Comparison was made with the prior spine x-ray dated 11/12/2014. Intense diffused activity along the cervical and thoracic spine,corresponding with surgical history and instrumentation finding in priorspine x-rays. Moderate increased activity in both shoulders, hips, knees,ankles, and feet. The remaining skeleton shows physiological tracer distribution physiological kidneys uptake. IMPRESSION Impression: 1. Unremarkable postsurgical changes throughout the spine. 2. Degenerative changes seen in shoulders, hips, knees, ankles and feetbilateral. This report was approved by Debbie Cowan M.D. on 11/15/2014 4:56 PM. I, Dr. GÉNESIS YUNG M.D. have personally reviewed and interpreted thisexamination/study. This report was electronically signed by GÉNESIS YUNG M.D. on 11/15/20144:57 PM . Ignacio Reyes MD NM ORDERABLES * XR SCOLIOSIS 1VW (11/12/2014 12:59 PM CDT) Only the most recent of7 resultswithin the time period is included. Anatomical Region Laterality Modality Spine Other Impressions 11/12/2014 4:38 PM CDT Impression: 1. Status post instrumented spinal fusion from the occiput to C6. Fractures of both vertical rods are redemonstrated. 2. Status post instrumented posterior spinal fusion from T4-S1, alignment unchanged. 3. Sagittal imbalance. Report dictated by Kimberley Dixon MD. (Choir Director). I, Dr. THAD CARBALLO MD have personally reviewed and interpreted this examination/study. This report was electronically signed by THAD CARBALLO MD on 11/12/2014 4:38 PM . Narrative 11/12/2014 4:38 PM CDT Exam: XR SPINE SCOLIOSIS STANDING, XR SPINE CERVICAL 2 OR 3 VIEWS Date: 11/12/2014; 1:00 PM History: Scoliosis Comparison: Comparison is made with a prior study dated 07/09/2014. Findings: CERVICAL SPINE: The C6 and C7 vertebral bodies are obscured on the lateral view. The patient is status post posterior instrumented spinal fusion from the occiput through C6. Fracture of the left vertical bety at the level of C1 is redemonstrated. Fracture of the right vertical bety at the level of C2-C3 is redemonstrated. Bony alignment is unchanged with at least partial bony fusion at some cervical vertebral levels. The vertebral body heights are preserved without evidence of acute fracture. There is no prevertebral soft tissue swelling. SCOLIOSIS SERIES: The patient is status post occipitocervical fusion as noted above with fracture of both vertical rods. The patient is also status post posterior instrumented spinal fusion from the level of T4 to the level of S1, comprising of vertical rods and pedicle screws. The hardware is intact. Bony fusion at several levels is noted. Minimal dextrocurvature of the lumbar spine is unchanged. The sagittal vertical axis measures +14 cm. Right iliac crest and greater trochanter enthesopathy is noted. Procedure Note Thad Carballo MD - 06/12/2017 Exam: XR SPINE SCOLIOSIS STANDING, XR SPINE CERVICAL 2 OR 3 VIEWS Date: 11/12/2014; 1:00 PM History: Scoliosis Comparison: Comparison is made with a prior study dated 07/09/2014. Findings: CERVICAL SPINE: The C6 and C7 vertebral bodies are obscured on the lateral view. Thepatient is status post posterior instrumented spinal fusion from theocciput through C6. Fracture of the left vertical bety at the level of C1is redemonstrated. Fracture of the right vertical bety at the level of C2-C3 is redemonstrated. Bony alignment isunchanged with at least partial bony fusion at some cervical vertebrallevels. The vertebral body heights are preserved without evidence of acutefracture. There is no prevertebral soft tissue swelling. SCOLIOSIS SERIES: The patient is status post occipitocervical fusion as noted above withfracture of both vertical rods. The patient is also status post posteriorinstrumented spinal fusion from the level of T4 to the level of S1,comprising of vertical rods and pedicle screws. The hardware is intact. Bony fusion at several levels is noted.Minimal dextrocurvature of the lumbar spine is unchanged. The sagittalvertical axis measures +14 cm. Right iliac crest and greater trochanterenthesopathy is noted. IMPRESSION Impression: 1. Status post instrumented spinal fusion from the occiput to C6.Fractures of both vertical rods are redemonstrated. 2. Status post instrumented posterior spinal fusion from T4-S1, alignmentunchanged. 3. Sagittal imbalance. Report dictated by Kimberley Dixon MD. (Choir Director). I, Dr. THAD CARBALLO MD have personally reviewed and interpreted thisexamination/study. This report was electronically signed by THAD CARBALLO MD on 11/12/20144:38 PM . Ignacio Reyes MD DIAGNOSTIC IMAGING O RDERABLES * URINALYSIS - POINT OF CARE (AMB) U (01/24/2013) Glucose UA ++++ [facility] Bilirubin UA POCT neg [facility] Ketones UA POCT neg [facility] Specific [place] UA 1.010 [facility] Blood Urine POCT neg [facility] pH UA 5.0 [facility] Protein UA neg [facility] Urobilinogen UA neg [facility] Nitrite UA neg [facility] WBC UA neg [facility] Urine specimen (specimen) 01/24/2013 Rizwan Esqueda MD LAB - POINT OF CARE ORDERABLES [facility] * CULTURE URINE COMPREHENSIVE (01/24/2013) Culture SEE NOTE [facility] Comment: CULTURE, URINE, SPECIAL MICRO NUMBER: [id number] TEST STATUS: FINAL SPECIMEN SOURCE: URINE SPECIMEN QUALITY: ADEQUATE RESULT: No Growth REPORT COMMENT: PREFERRED LAB:->[facility] Test Performed at: [email or web address] [id number] FRANCIS AGUILAR DO, MPH Urine specimen (specimen) 01/24/2013 01/25/2013 12:55 AM CASUAL SHOE INSPECTOR Narrative [facility] - 01/27/2013 7:00 AM CASUAL SHOE INSPECTOR Preferred Lab:->[facility] Rizwan Esqueda MD LAB - MICROBIOLOGY O RDERABLES [facility] * VAS BILATERAL VENOUS DUPLEX LE (09/13/2012 3:34 PM CDT) Anatomical Region Laterality Modality Other Divya Morales APRN-MARKETING PROPOSAL COORDINATOR VASCULAR LAB OR DERABLES * MRI SHOULDER LEFT WO CONTRAST (06/20/2012 3:41 PM CDT) Anatomical Region Laterality Modality Upper Extremity Other Impressions 06/21/2012 9:43 AM CDT IMPRESSION: 1. Rotator cuff tendinopathy without full-thickness tear as above. 2. Biceps tendinosis without clear evidence of tear. 3. Increased linear signal within the posterior deltoid which may represent deltoid muscle strain. 4. Extensive chronic enthesopathy. This report was electronically signed by CRESENCIO GUILLEN M.D. on 06/21/2012 9:43 AM . Narrative 06/21/2012 9:43 AM CDT MRI LEFT SHOULDER NONCONTRAST CLINICAL: 57-year-old female with shoulder pain and rotator cuff disease Technique: Multiple fluid sensitive and fat sensitive sequences were obtained of the LEFT shoulder in all 3 orthogonal planes without gadolinium. FINDINGS: There is increased signal involving the undersurface of this finding is and infraspinatus cuff tendons consistent with tendinosis and likely low-grade partial-thickness tearing/fraying. Some of this increased signal extends along the central tendon of the infraspinatus. There is also focal linear intramuscular signal within the posterior deltoid which may represent a muscle strain. There is moderate biceps tendinosis without clear evidence of tear. There is degenerative cyst and marrow edema deep to the insertion of the rotator cuff onto the femoral head. There is extensive enthesopathy. There is mild to moderate atrophy of the supraspinatus and infraspinatus. There is moderate hypertrophic arthropathy of the acromioclavicular joint and ossification within the coracoclavicular ligament. Fluid extends into the rotator cuff interval surrounding the intracapsular biceps. Otherwise no joint effusion. There is mild subacromial subdeltoid bursitis. Procedure Note Cresencio Guillen MD - 06/13/2017 MRI LEFT SHOULDER NONCONTRAST CLINICAL: 57-year-old female with shoulder pain and rotator cuff disease Technique: Multiple fluid sensitive and fat sensitive sequences wereobtained of the LEFT shoulder in all 3 orthogonal planes withoutgadolinium. FINDINGS: There is increased signal involving the undersurface of thisfinding is and infraspinatus cuff tendons consistent with tendinosis andlikely low-grade partial-thickness tearing/fraying. Some of this increasedsignal extends along the central tendon of the infraspinatus. There is also focal linear intramuscularsignal within the posterior deltoid which may represent a muscle strain.There is moderate biceps tendinosis without clear evidence of tear. Thereis degenerative cyst and marrow edema deep to the insertion of the rotator cuff onto the femoral head. There isextensive enthesopathy. There is mild to moderate atrophy of thesupraspinatus and infraspinatus. There is moderate hypertrophicarthropathy of the acromioclavicular joint and ossification within the coracoclavicular ligament. Fluid extends into therotator cuff interval surrounding the intracapsular biceps. Otherwise nojoint effusion. There is mild subacromial subdeltoid bursitis. IMPRESSION IMPRESSION: 1. Rotator cuff tendinopathy without full-thickness tear as above. 2. Biceps tendinosis without clear evidence of tear. 3. Increased linear signal within the posterior deltoid which mayrepresent deltoid muscle strain. 4. Extensive chronic enthesopathy. This report was electronically signed by CERSENCIO GUILLEN M.D. on 06/21/20129:43 AM . Iglesia Barger MD MR ORDERABLES * LAB MICROBIOLOGY - HPF HISTORICAL (10/31/2009 5:02 AM CDT) Only the most recent of5 resultswithin the time period is included. 10/31/2009 5:[address] [facility] - 10/31/2009 5:02 AM CDT Ignacio Reyes MD LAB - MICROBIOLOGY O RDERABLES [facility] * GROSS + MICRO EXAM (10/15/1997 3:36 PM CDT) Result CASE NUMBER [id number] Comment: ORDERING PHYSICIAN SINAN SANTACRUZ SPECIMEN TYPE Uterus Date 10/15/1997 Physician Simón Gross Description The specimen is received in a formalin-filled container, labeled with the patient's name and uterus, cervix and leiomyoma . The specimen consists of 2 parts. The first part is a uterus measuring 12 cm in height, 6 cm in width and 6 cm in depth. The serosal surface is pink-yellow and glistening. There are several fresh sutured surgical incisions along the anterior surface of the uterus. The ectocervix is pink-white and glistening. The second part of the specimen is a firm white roughly spherical nodule measuring 4.5 cm in diameter. The specimen weighs in aggregate 270 grams. The uterus is opened longitudinally. The endocervical canal is pink-whitney and glistening. The endometrium is pink-whitney and slightly hemorrhagic. The myometrium is pink with numerous firm white nodules throughout. Some of these nodules are subendometrium, some intramural and some are subserosal. The largest of these measures 4.5 cm in greatest dimension. An anterior section of cervix is submitted in cassette A and a posterior in cassette B. An anterior section of endometrium is submitted in cassette C and posterior in cassette D. Sections of firm white nodules are submitted in cassettes E and F. The separate nodule has been bisected. Cut surfaces show dense white fibrous tissue. Electrician [employer] section is submitted in cassette G. BM/lmj Microscopic Exam Sections of the cervix show unremarkable squamous and endocervical glandular mucosa. There is a small amount of submucosal chronic inflammation. Sections of the uterine corpus show a secretory endometrium. The leiomyomata are benign and one is found to be partially hyalinized. Diagnosis I. Uterus, cervix, hysterectomy A. Mild chronic cervicitis. II. Uterus, hysterectomy A. Secretory endometrium. B. Leiomyomata Automation Clerk [facility] Pathologist Gianna Arshad M.D. [place]. 10/16/1997 [id number] <2> MISCELLANEOUS SAMPLES / Unknown 10/15/1997 3:36 PM CDT 10/15/1997 3:36 PM CDT Historical Provider MD LAB - PATHOLOGY/C YTOLOGY ORDERABLES Care Teams District Extension Service Agent Relationship Specialty Start Date End Date Aurelio Plummer II, DO [address] [place] [address] PCP - General Internal Medicine 09/30/20
--- OUTSIDE RECORDS SUMMARY | 2024-05-11 01:49 | XMS_ITS | Encounter Summary ---
Author Organization [facility] Address [address] [place] [address] Care Team Providers Care Servicenow Administrator Developer Name Role Phone Elian ALMARAZDOAurelioce Primary Care Provider + Reason for Visit * Reason Onset Date Comments Appointment 03/16/2024 Spk to Leydicj he is looking to reschedule appointment [facility] [place] [facility] [place] with Dr Barger. She stated that is her usual location and would like to schedule there. She has an upcoming appointment 03/20/2024 at the [facility] and is worried about the weather and distance. Please reach out to Leydi to advise if appointment is able to get moved to another location. Encounter Details Date Type Department Care Team (Late st Contact Info) Description 03/16/2024 Telephone [facility] - Centralized Scheduling [address] [place] [id number] Iglesia Barger MD [address] [place] [address] [place] [address] Appointment (Spk to Leydi, esther is looking to reschedule appointment at the [address] [place] [address] for her appointment with Dr Barger. She stated that is her usual location and would like to schedule there. She has an upcoming appointment 03/20/2024 at the [facility] and is worried about the weather and distance. Please reach out to Leydi to advise if appointment is able to get moved to another location.) Social History Tobacco Use Types Packs/Day Years Used Date Smoking Tobacco: Never Smokeless Tobacco: Never Alcohol Use Standard Drinks/Week Comments Yes 0 (1 standard drink = 0.6 oz pur e alcohol) PHQ-2 Answer Date Recorded Patient Health Questionnaire-2 Score 1 03/13/2024 Sex and Gender Information Value Date Recorded Sex Assigned at Not on file Gender Identity Not on file Sexual Orientation Not on file documented as of this encounter Miscellaneous Notes * Telephone Encounter - Zach Kinsey - 03/16/2024 12:14 PM CST Spk to Leydi, she is looking to reschedule appointment at the [address] [place] [address] for her appointment with Dr Barger. She stated that is her usual location and would like to schedule there. She has an upcoming appointment 03/20/2024 at the [facility] location and is worried about the weather and distance. Please reach out to Leydi to advise if appointment is able to get moved to another location. RY TEAM MEMBER documented in this encounter Plan of Treatment Not on file documented as of this encounter Visit Diagnoses Not on filedocumented in this encounter Care Teams Servicenow Administrator Developer Relationship Specialty Start Date End Date Aurelio Plummer II, DO [address] [place] [address] PCP - General Internal Medicine 09/30/20 documented as of this encounter
--- OUTSIDE RECORDS SUMMARY | 2024-05-11 01:49 | XMS_ITS | Clinical Summary ---
Author Organization [facility] Address [address] [place] [address] Care Team Providers Care Mining Engineering Technologist Name Role Phone Elian ALMARAZ Aurelio EATON Primary Care Provider + Source Comments [facility],non-owned Affiliates and Associated Physician Practices is amultiple site organization consisting of ambulatory clinics and hospital sitesin [place], [place], [place] and [place]. This disclosure is being madepursuant to the Care Everywhere program and may not contain all information available regarding this patient. Last updated 17.[facility] Allergies Active Allergy Reactions Criticality Noted Date [...] Impacted cerumen of left ear 08/04/2019 08/18/2019 Encounters Date Type Department Care Team Description 03/29/2024 10:00 AM HUMAN RESOURCES ADMINISTRATOR Office Visit [facility] [place] [address] Iglesia Barger MD Right shoulder pain, unspecified chronicity (Primary Dx); Tendinopathy of rotator cuff, unspecified laterality; Left shoulder pain, unspecified chronicity; Tear of right rotator cuff, unspecified tear extent, unspecified whether traumatic; Sprain of rotator cuff capsule, unspecified laterality, subsequent encounter 03/16/2024 Telephone [facility] [place] [address] Iglesia Barger MD Appointment (Spk to Leydi, she is looking to reschedule appointment at the [address] [facility] location for her appointment with Dr Barger. She stated that is her usual location and would like to schedule there. She has an upcoming appointment 03/20/2024 at the [facility] location and is worried about the weather and distance. Please reach out to Leydi to advise if appointment is able to get moved to another location.) from Last 3 Months Immunizations Name Administration Dates Next Due COVID PFIZER 12+YR 30MCG/0.3mL 11/29/2023 Covid Moderna primary monova lent 12+ yr 0.5mL 05/17/2020,04/19/2020 MODERNA SARS-COV-2 COVID-19 VACCINE 0.25ML 03/19 PNEUMOCOCCAL PCV20 CONJ VAC IM 10/31/2021 PNEUMOCOCCAL PPSV23 08/22/2020,08/22/2020 TD (ADULT), 5 LF TETANUS TOX OID, ADSORBED, PF 08/16/2013 Zoster Hzv Vacc Recombinant Inj Im 11/29/2023,,02/22/2019 Family History Medical History Relation Name Comments Cancer Father lung Relation Name Status Comments Father Social History Tobacco Use Types Packs/Day Years [...] Comments Blood Pressure 126/54 04/14/2022 11:17 AM HUMAN RESOURCES ADMINISTRATOR Pulse 75 04/14/2022 11:17 AM HUMAN RESOURCES ADMINISTRATOR Temperature 36.2 C (97.1 F) 06/28/2020 9:14 AM CDT Respiratory Rate 18 04/14/2022 11:17 AM HUMAN RESOURCES ADMINISTRATOR Oxygen Saturation 98% 04/14/2022 11:17 AM HUMAN RESOURCES ADMINISTRATOR Inhaled Oxygen Concentration - - Weight 78.9 kg (174 lb) 04/16/2023 2:21 PM HUMAN RESOURCES ADMINISTRATOR Height 157.5 cm (5' 2 ) 04/01/2020 9:05 AM HUMAN RESOURCES ADMINISTRATOR Body Mass Index 31.83 04/01/2020 9:05 AM HUMAN RESOURCES ADMINISTRATOR Plan of Treatment Health Maintenance Due Date Last Done Comments BONE DENSITY TESTING 1955 COLOGUARD (AGES 45-75) - COLON CA SCREENING [address] COLONOGRAPHY - COLON CA SCREENING 1955 FIT - COLON CA SCREENING 1955 FLEX SIG - COLON CA SCREENING 1955 MAMMOGRAM 1955 HEPATITIS C SCREENING 01/04/1971 Respiratory Syncytial Virus (RSV) Vaccine Pt: or over 60 yrs (1 - Risk 60-74 years 1-dose series) 2013 COLONOSCOPY - COLON CA SCREENING 07/03/2019 07/02/2009 (Previously completed) Colorectal Cancer Screening 07/03/2019 DIABETES RETINOPATHY SCREENING 08/04/2019 DIABETES-FOOT EXAM WITH MONOFILAMENT 08/04/2019 DTAP/TDAP/TD VACCINES (2 - Td or Tdap) 08/17/2023 08/16/2013 INFLUENZA VACCINE (#1) 2023 DIABETES-SERUM CREATININE 01/12/20242022, 05/11/2022, 05/11/2022, Additional history exists MEDICARE AWV CALENDAR YEAR 2024 DIABETES-HGB A1C 09/14/2024 03/17/2024, 07/2023, 01/11/2023, Additional history exists DIABETES - URINE PROTEIN SCREENING 03/17/2025 03/17/2024, 03/17/2024, 05/18/2023, Additional history exists PNEUMOCOCCAL VACCINE 50+ Completed 022, 08/22/2020, 08/22/2020 COVID-19 VACCINE Completed 11/29/2023, 07/2021, 05/17/2020, Additional history exists ZOSTER VACCINE Completed 11/29/2023, 10/13, 02/22/2019 DEPRESSION SCREENING Completed 03/29/2024 HEPATITIS B VACCINE Aged Out No longe r eligible based on patient's age to complete this topic HIB VACCINE Aged Out No longer eligi ble based on patient's age to complete this topic HPV VACCINE Aged Out No longer eligi ble based on patient's age to complete this topic MENINGOCOCCAL (Group B) VACCINE Aged Out No longer eligible based on patient's age to complete this topic MENINGOCOCCAL VACCINE Aged Out No gricelda mohan eligible based on patient's age to complete this topic Procedures Procedure Name Priority Date/Time Associated Diagnosis Comments TX DRAIN/INJECT LARGE JOINT/BURSA Routine 03/29/2024 11:14 AM HUMAN RESOURCES ADMINISTRATOR Right shoulder pain, unspecified chronicity Left shoulder pain, unspecified chronicity TX DRAIN/INJECT LARGE JOINT/BURSA Routine 03/29/2024 11:13 AM HUMAN RESOURCES ADMINISTRATOR Right shoulder pain, unspecified chronicity Left shoulder pain, unspecified chronicity from Last 3 Months Results * TX DRAIN/INJECT LARGE JOINT/BURSA (03/29/2024 11:14 AM HUMAN RESOURCES ADMINISTRATOR) Iglesia Roach MD - 03/29/2024 11:14 AM HUMAN RESOURCES ADMINISTRATOR Iglesia Barger MD 03/29/2024 9:06 PM INJECTION [...] Barger MD PROCEDURE/MINOR SURG ICAL ORDERABLES * TX DRAIN/INJECT LARGE JOINT/BURSA (03/29/2024 11:13 AM HUMAN RESOURCES ADMINISTRATOR) Iglesia Roach MD - 03/29/2024 11:13 AM HUMAN RESOURCES ADMINISTRATOR Iglesia Barger MD 03/29/2024 9:06 PM INJECTION [...] Documents on File Type Date Recorded Patient Graphic Production Artist Expl anation Adv Directive/Living Will/POA 07/24/2009 11:52 AM Care Teams Mining Engineering Technologist Relationship Specialty Start Date End Date Aurelio Plummer II, DO [address] [place] [address] PCP - General Internal Medicine 09/30/20
--- OUTSIDE RECORDS SUMMARY | 2024-05-11 01:49 | XMS_ITS | Clinical Summary ---
Author Organization [facility] Address [address] [place] [phone] Phone Care Team Providers Care Flower Cutter Name Role Phone Unavailable Primary Care Provider Unavailabl e Allergies No known active allergies Medications amLODIPine (NORVASC) 10 mg Oral tablet Take 10 mg by mouth daily. Active metoprolol succinate ER 24 hour (TOPROL XL) 100 mg Oral tablet Take 100 mg by mouth daily. Active hydrochlorothiaz vickie (MICROZIDE) 12.5 mg Oral capsule Take 12.5 mg by mouth daily. Active lovastatin (MEVACOR) 10 mg Oral tablet Take 10 mg by mouth daily with supper. Active potassium chloride SR (MICRO-K) 10 mEq Oral capsule Take 10 mEq by mouth 2 times daily. Active losartan (COZAAR) 25 mg Oral tablet Take 25 mg by mouth daily. Active omeprazole (PRILOSEC) 10 mg Oral CpDR Take 10 mg by mouth daily. Active oxyCODONE-acetam inophen (PERCOCET) 5-325 mg Oral tablet Take 2 Tabs by mouth every 4 hours as needed for Pain. 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 Gender Identity Not on file Sexual Orientation Not on file Last Filed Vital Signs Vital Sign Reading Time Taken Comments Blood Pressure 170/72 12/31/2009 6:45 PM CDT Pulse 76 12/31/2009 6:45 PM CDT Temperature 36.9 C (98.4 F) 12/31/2009 4:52 PM CDT Respiratory Rate 18 12/31/2009 4:52 PM CDT Oxygen Saturation 100% 12/31/2009 4:52 PM CDT Inhaled Oxygen Concentration - - Weight - - Height - - Body Mass Index - - Plan of Treatment Health Maintenance Due Date Last Done Comments DTAP/TDAP/TD VACCINES (1 - Tdap) 01/09/1972 BREAST CANCER SCREENING 1993 COLORECTAL SCREENING 1998 Colorectal Cancer Screening 1998 FIT-DNA Q 3 years 1998 FIT/FOBT Q 1 year 1998 Flex Sig/CT Colonography Q 5 years 1998 PNEUMOCOCCAL VACCINE 65+ YEARS (1 of 1 - PCV) 01/09/20 03 ZOSTER VACCINE (1 of 2) 2003 OSTEOPOROSIS SCREENING 2018 INFLUENZA VACCINE (#1) 2023 RSV VACCINE (60+ or ) (1 - 1-dose 75+ series) 01/09/2028 Insurance [employer] [facility] OPEN ACCESS
--- NOTE | 2024-05-11 10:15 | SUR.PREOP ---
Patient has a blood pressure of 219/81, pt states to not have any symptoms. was notified
[2024-05-11] MEDS: LACTATED RINGERS 1,000 ML 150 ML IV CONT (10:28)
[2024-05-11] MEDS: hydrALAZINE HCL 20 MG/ML VIAL 5 MG IV PUSH (10:34)
--- NOTE | 2024-05-11 10:42 | SUR.PREOP ---
Manual blood pressure was 224/72. ordered to give hydralazine. Patient states of having no symptoms
[2024-05-11 10:47] LABS: Glucose Point of Care 82 mg/dl (65-105)
[2024-05-11] MEDS: LABETALOL HCL INJ 100 MG/20 ML VIAL IV PUSH (11:06)
--- NOTE | 2024-05-11 11:20 | SUR.PREOP ---
Patients blood pressure was still elevated, was notified.
--- NOTE | 2024-05-11 11:34 | WPDANESEPPF ---
Anes - Initial Pre Proc Eval Procedure: Operation Date: 05/11/24 10:00 Proposed Procedures p Screening Colonoscopy - Misbah Goel MD Date/Time: 05/11/24 11:34 Surgeon: Misbah Goel MD Pre Op Diagnosis: Screening Patient Data Age: 69 Gender: F Height: 1.57 m Weight: 80.6 kg Last Vital Signs Temp 96.7 F L 05/11/24 09:35 Pulse 66 05/11/24 11:23 Resp 18 05/11/24 11:23 BP 190/49 H 05/11/24 11:23 Pulse Ox 100 05/11/24 11:23 O2 Del Method Room Air 05/11/24 11:23 Allergies Allergy/AdvReac Type Severity Reaction Status Date / Time No Known Allergies Allergy Verified 05/11/24 09:56 Home Medications ?Medication ?Instructions ?Recorded ?Confirmed ?Type hydralazine 10 mg tablet 10 mg PO BID 01/23/20 04/28/24 History hydrochlorothiazide 12.5 mg capsule 25 mg PO DAILY 01/23/20 05/11/24 History metformin 500 mg tablet 500 mg PO BID 01/23/20 04/28/24 History montelukast 10 mg tablet 10 mg PO HS 01/23/20 05/11/24 History (Singulair) metoprolol succinate 50 mg capsule 50 mg PO DAILY 02/14/20 05/11/24 History sprinkle, ext. release 24 hr atorvastatin 20 mg tablet 20 mg PO DAILY 01/23/22 05/11/24 History cyanocobalamin (vitamin B-12) 1,000 mcg PO DAILY 01/23/22 05/11/24 History 1,000 mcg capsule empagliflozin 10 mg tablet 10 mg PO DAILY 01/23/22 05/11/24 History (Jardiance) albuterol 90 mcg/actuation aerosol 90 mcg inhalation DAILY PRN cough 04/28/24 05/11/24 History inhaler cholecalciferol (vitamin D3) 25 25 mcg PO BID 04/28/24 05/11/24 History mcg (1,000 unit) capsule (Vitamin D3) folic acid 1 mg tablet 1 mg PO DAILY 04/28/24 05/11/24 History hydralazine 50 mg tablet 50 mg PO BID 04/28/24 05/11/24 History losartan 25 mg tablet 25 mg PO DAILY 04/28/24 05/11/24 History Laboratory Tests 05/11/24 10:14 POC Capillary Glucose 82 mg/dl (65-105) Patient hx anesthesia problems: none Family hx anesthesia problems: none Results Review: All pre-operative results and documents have been reviewed as part of the pre-operative evaluation. [facility] Past Medical History Medical History Colon cancer screening DISH (diffuse idiopathic skeletal hyperostosis) Back problem Asthma Hyperlipidemia Hypertension Surgical History Surgical History History of knee surgery History of back surgery H/O: hysterectomy Family History Family History Mother Diabetes mellitus, Onset Age: 72 Heart disease Sibling Diabetes mellitus Hypertension Kidney disease Pancreatic disease Father Patient's father is , Onset Age: 68 Acute myocardial infarction Heart disease Social History Social History Smoking status: Never smoker Second hand tobacco smoke exposure: No Alcohol intake: never Alcohol use details: 1-2 times a year Substance use: never Substance use type: does not use Living arrangements: alone Gender identity (if verbalized by the patient): Female Spiritual care concerns: No Anes - Eval Final PreProcedure Day of Procedure 05/11/24 11:34 Patient weight: overweight Lungs: normal air movement Airway: Mallampati scale class II and special considerations (Limited neck mobility, prev neck sx. ) Neurological: alert and oriented Last oral intake: >/= 8 hours ASA classification: III Emergent: no Anesthetic plan: proceed Anesthesia type and monitoring: general GIVS and standard monitoring Results Review: All pre-operative results and documents have been reviewed as part of the pre-operative evaluation. HTN, poorly controlled, hyperlipidemia. Pt w elevated BP in preop area, we will treat w b oliver and hydralazine as pt is on these at home, reeval. Informed Consent: The patient's anesthetic plan and its attendant risks and benefits were discussed with the patient/family/POA. Questions were solicited and answers provided to the satisfaction of the patient/family/POA.
--- NOTE | 2024-05-11 13:32 | SUR.PREOP ---
Dr Garrett spoke with patient directly and it was agreed that she goes to the ER for blood pressure control. I spoke with extension service specialist in charge in ER, report given and patient taken to ER in wheelchair. Patients hire car driver was in the waiting room and he was given directions to ER. supervisor cigarette making department and my director were both notified of the updated plan of care.
--- NOTE | 2024-05-11 13:45 | SUR.PREOP ---
Notified that patients blood pressure was elevated after administering hydralazine. then ordered labetalol to be given. Patients blood pressure still remained elevated after administration. patient stated to not have any symptoms or pain.
== END ==
PROVIDERS: Visit Provider Internal Medicine Gastroenterology
PROC: 0DJD8ZZ Inspection of Lower Intestinal Tract, Via Natural or Artificial Opening Endoscopic (ICD-10-PCS; CPT 45378; principal; 2024-05-11 10:00)
DX: Z12.11 Encounter for screening for malignant neoplasm of colon (principal); I10 Essential (primary) hypertension; Z53.09 Procedure and treatment not carried out because of other contraindication; Z79.899 Other long term (current) drug therapy
CPT/HCPCS: 82948; 99212; G0463; J0360; J7120

== ENCOUNTER 2024-05-11 13:20 | Emergency (ER) | payer MEDICARE, SELFPAY ==
[2024-05-11] VITALS (16 sets, daily range): BP systolic 164–248; BP diastolic 49–91; PULSE 69–97; RESP 16–22; TEMP 36.4–36.6; O2SAT 95–100
--- NOTE | 2024-05-11 13:29 | PC.NURSE ---
Patient denies any symptom at this time.
--- NOTE | 2024-05-11 14:19 | ED.GENADULT ---
HPI - General Adult General Chief complaint: Recheck/Abnormal Lab/Rx <Darin Alvarez MD - Last Filed: 05/11/24 17:30> Stated complaint: hypertensive crisis <Darin Alvarez MD - Last Filed: 05/11/24 17:30> Time Seen by Provider: 05/11/24 13:37 <Darin Alvarez MD - Last Filed: 05/11/24 17:30> History of Present Illness HPI narrative: This is a 69-year-old female sent from our colonoscopy suite for elevated blood pressures. Blood pressure elevated at 240/80. She received 5 of labetalol and 5 hydralazine from anesthesia. Patient is asymptomatic. She has no neuro deficits chest pain or difficulty breathing. Patient is on multiple medications for hypertension. <Darin Alvarez MD - Last Filed: 05/11/24 17:30> Related Data Home medications: Home Medications ?Medication ?Instructions ?Recorded ?Confirmed ?Last Taken ?Type hydralazine 10 mg tablet 10 mg PO BID 01/23/20 04/28/24 02/22/20 History hydrochlorothiazide 12.5 mg capsule 25 mg PO DAILY 01/23/20 05/11/24 05/10/24 History metformin 500 mg tablet 500 mg PO BID 01/23/20 04/28/24 02/22/20 History montelukast 10 mg tablet 10 mg PO HS 01/23/20 05/11/24 05/10/24 History (Singulair) metoprolol succinate 50 mg capsule 50 mg PO DAILY 02/14/20 05/11/24 05/10/24 History sprinkle, ext. release 24 hr atorvastatin 20 mg tablet 20 mg PO DAILY 01/23/22 05/11/24 05/11/24 History cyanocobalamin (vitamin B-12) 1,000 mcg PO DAILY 01/23/22 05/11/24 05/10/24 History 1,000 mcg capsule empagliflozin 10 mg tablet 10 mg PO DAILY 01/23/22 05/11/24 05/10/24 History (Jardiance) albuterol 90 mcg/actuation aerosol 90 mcg inhalation DAILY PRN cough 04/28/24 05/11/24 Unknown History inhaler cholecalciferol (vitamin D3) 25 25 mcg PO BID 0205/11/24 05/10/24 History mcg (1,000 unit) capsule (Vitamin D3) folic acid 1 mg tablet 1 mg PO DAILY 04/28/24 05/11/24 05/11/24 History hydralazine 50 mg tablet 50 mg PO BID 04/28/24 05/11/24 05/11/24 History losartan 25 mg tablet 25 mg PO DAILY 04/28/24 05/11/24 05/10/24 History <Darin Alvarez MD - Last Filed: 05/11/24 17:30> Allergies/adverse reactions: Allergies Allergy/AdvReac Type Severity Reaction Status Date / Time No Known Allergies Allergy Verified 05/11/24 09:56 <Darin Alvarez MD - Last Filed: 05/11/24 17:30> [facility] Past Medical History Medical History: Medical History Colon cancer screening DISH (diffuse idiopathic skeletal hyperostosis) Back problem Asthma Hyperlipidemia Hypertension <Darin Alvarez MD - Last Filed: 05/11/24 17:30> Surgical History Surgical History: Surgical History History of knee surgery History of back surgery H/O: hysterectomy <Darin Alvarez MD - Last Filed: 05/11/24 17:30> Family History Family History: Family History Mother Diabetes mellitus, Onset Age: 72 Heart disease Sibling Diabetes mellitus Hypertension Kidney disease Pancreatic disease Father Patient's father is , Onset Age: 68 Acute myocardial infarction Heart disease <Darin Alvarez MD - Last Filed: 05/11/24 17:30> Social History Social History: Social History Smoking status: Never smoker Second hand tobacco smoke exposure: No Alcohol intake: never Alcohol use details: 1-2 times a year Substance use: never Substance use type: does not use Living arrangements: alone Gender identity (if verbalized by the patient): Female Spiritual care concerns: No <Darin Alvarez MD - Last Filed: 05/11/24 17:30> Exam Narrative: APPEARANCE: No apparent distress. Head: atraumatic. EYES: EOMI, NOSE: Atraumatic NECK: Trachea midline RESPIRATORY: No increased rate of breathing clear to auscultation CARDIOVASCULAR: RRR, no peripheral edema ABDOMINAL: Non-distended soft nontender no guarding rebound MUSCULOSKELETAl: No obvious deformities NEURO: Alert. Moving 4/4 extremities SKIN:: Warm, dry. Normal color PSYCHIATRIC: Normal affect <Darin Alvarez MD - Last Filed: 05/11/24 17:30> Course Course Emergency Course: ABRAHAM 1730: signed out to the oncoming physician pending repeat troponin. <Darin Alvarez MD - Last Filed: 05/11/24 17:30> ABRAHAM 1730: signed out to the oncoming physician pending repeat troponin. Patient was signed out to me pending repeat troponin. Repeat troponin is also negative. Patient has no complaints upon re-evaluation, vital signs are stable and blood pressure came down with her normal home medications. Patient is stable for discharge per previous providers instructions. <Michael Doe MD - Last Filed: 05/11/24 19:19> Vital Signs Vital signs: Vital Signs Temperature 36.6 C 05/11/24 13:29 Pulse Rate 72 05/11/24 13:29 Respiratory Rate 17 05/11/24 13:29 Blood Pressure 248/82 H 05/11/24 13:29 Pulse Oximetry 100 05/11/24 13:29 Oxygen Delivery Room Air 05/11/24 13:29 Temperature 36.6 C 05/11/24 13:29 Pulse Rate 69 05/11/24 19:05 Respiratory Rate 18 05/11/24 19:05 Blood Pressure 164/71 H 05/11/24 19:05 Pulse Oximetry 100 05/11/24 19:05 Oxygen Delivery Room Air 05/11/24 13:29 <Darin Alvarez MD - Last Filed: 05/11/24 17:30> Vital Signs Temperature 36.6 C 05/11/24 13:29 Pulse Rate 72 05/11/24 13:29 Respiratory Rate 17 05/11/24 13:29 Blood Pressure 248/82 H 05/11/24 13:29 Pulse Oximetry 100 05/11/24 13:29 Oxygen Delivery Room Air 05/11/24 13:29 Temperature 36.6 C 05/11/24 13:29 Pulse Rate 69 05/11/24 19:05 Respiratory Rate 18 05/11/24 19:05 Blood Pressure 164/71 H 05/11/24 19:05 Pulse Oximetry 100 05/11/24 19:05 Oxygen Delivery Room Air 05/11/24 13:29 <Michael Doe MD - Last Filed: 05/11/24 19:19> Medical Decision Making MDM Narrative Medical decision making narrative: -Course: 69-year-old female presenting with elevated blood pressures. She is otherwise asymptomatic. Screening lab work was ordered which was within normal limits. She was given IV labetalol, hydralazine and that her home medications with improvement in blood pressure. Patient has been signed out to the oncoming physician pending repeat troponin. <Darin Alvarez MD - Last Filed: 05/11/24 17:30> Vital Signs Vital Signs: Vital Signs Temperature 36.6 C 05/11/24 13:29 Pulse Rate 72 05/11/24 13:29 Respiratory Rate 17 05/11/24 13:29 Blood Pressure 248/82 H 05/11/24 13:29 Pulse Oximetry 100 05/11/24 13:29 Oxygen Delivery Room Air 05/11/24 13:29 Temperature 36.6 C 05/11/24 13:29 Pulse Rate 69 05/11/24 19:05 Respiratory Rate 18 05/11/24 19:05 Blood Pressure 164/71 H 05/11/24 19:05 Pulse Oximetry 100 05/11/24 19:05 Oxygen Delivery Room Air 05/11/24 13:29 <Darin Alvarez MD - Last Filed: 05/11/24 17:30> Vital Signs Temperature 36.6 C 05/11/24 13:29 Pulse Rate 72 05/11/24 13:29 Respiratory Rate 17 05/11/24 13:29 Blood Pressure 248/82 H 05/11/24 13:29 Pulse Oximetry 100 05/11/24 13:29 Oxygen Delivery Room Air 05/11/24 13:29 Temperature 36.6 C 05/11/24 13:29 Pulse Rate 69 05/11/24 19:05 Respiratory Rate 18 05/11/24 19:05 Blood Pressure 164/71 H 05/11/24 19:05 Pulse Oximetry 100 05/11/24 19:05 Oxygen Delivery Room Air 05/11/24 13:29 <Michael Doe MD - Last Filed: 05/11/24 19:19> Lab Data Result diagrams: 05/11/24 16:17 05/11/24 15:46 <Darin Alvarez MD - Last Filed: 05/11/24 17:30> Labs: Lab Results 05/11/24 05/11/24 05/11/24 Range/Units 15:46 15:47 16:17 WBC 5.4 (4.5-10.0) K/mm3 RBC 4.17 L (4.2-5.4) M/mm3 Hgb 12.7 (12.0-15.0) g/dL Hct 39.5 (37.0-47.0) % MCV 94.7 (80-100) fl MCH 30.5 (26-34) pg MCHC 32.2 (32-36) g/dl RDW 15.4 H (11.5-14.5) % Plt Count 177 (150-375) k/mm3 MPV 11.0 H (7.4-10.4) fl Immature Gran % (Auto) 0.6 H (0-0.5) % Neut % (Auto) 77.1 H (45.5-73.1) % Lymph % (Auto) 15.2 L (18.3-44.2) % Archer % (Auto) 6.1 (2.6-8.5) % Eos % (Auto) 0.4 (0-4.4) % Baso % (Auto) 0.6 (0.2-1.2) % Lymph # (Auto) 0.82 L (0.9-3.2) K/mm3 Archer # (Auto) 0.3 (0.1-0.6) K/mm3 Eos # (Auto) 0.0 (0-0.3) K/mm3 Baso # (Auto) 0.0 (0.0-0.1) K/mm3 Abs Immat Gran (auto) 0.03 (0.00-0.031) K/mm3 Absolute Neuts (auto) 4.2 (1.3-6.7) K/mm3 Absolute Nucleated RBC 0.000 (0.0-0.012) K/mm3 Nucleated RBC % 0.0 (0.0-0.2) % Sodium 142 (137-145) mmol/L Potassium 3.6 (3.4-5.0) mmol/L Chloride 105 (98-107) mmol/L Carbon Dioxide 24 (22-30) mmol/L Anion Gap 13 H (4-12) mmol/L BUN 16 (7-17) mg/dL Creatinine 0.92 (0.7-1.0) mg/dL Estim Creat Clear Calc 48 ml/min Estimated GFR 60 (59 - ) Glucose 74 (65-110) mg/dL Calcium 10.1 (8.4-10.2) mg/dL Total Bilirubin 1.4 H (0.2-1.3) mg/dL AST 39 H (14-36) U/L ALT 37 H (6-35) U/L Alkaline Phosphatase 83 (38-126) U/L Troponin I 0.016 (0.000-0.034) ng/mL Total Protein 8.0 (6.3-8.2) g/dL Albumin 4.5 (3.5-5.1) g/dL 05/11/24 Range/Units 18:17 WBC (4.5-10.0) K/mm3 RBC (4.2-5.4) M/mm3 Hgb (12.0-15.0) g/dL Hct (37.0-47.0) % MCV (80-100) fl MCH (26-34) pg MCHC (32-36) g/dl RDW (11.5-14.5) % Plt Count (150-375) k/mm3 MPV (7.4-10.4) fl Immature Gran % (Auto) (0-0.5) % Neut % (Auto) (45.5-73.1) % Lymph % (Auto) (18.3-44.2) % Archer % (Auto) (2.6-8.5) % Eos % (Auto) (0-4.4) % Baso % (Auto) (0.2-1.2) % Lymph # (Auto) (0.9-3.2) K/mm3 Archer # (Auto) (0.1-0.6) K/mm3 Eos # (Auto) (0-0.3) K/mm3 Baso # (Auto) (0.0-0.1) K/mm3 Abs Immat Gran (auto) (0.00-0.031) K/mm3 Absolute Neuts (auto) (1.3-6.7) K/mm3 Absolute Nucleated RBC (0.0-0.012) K/mm3 Nucleated RBC % (0.0-0.2) % Sodium (137-145) mmol/L Potassium (3.4-5.0) mmol/L Chloride (98-107) mmol/L Carbon Dioxide (22-30) mmol/L Anion Gap (4-12) mmol/L BUN (7-17) mg/dL Creatinine (0.7-1.0) mg/dL Estim Creat Clear Calc ml/min Estimated GFR (59 - ) Glucose (65-110) mg/dL Calcium (8.4-10.2) mg/dL Total Bilirubin (0.2-1.3) mg/dL AST (14-36) U/L ALT (6-35) U/L Alkaline Phosphatase (38-126) U/L Troponin I 0.019 (0.000-0.034) ng/mL Total Protein (6.3-8.2) g/dL Albumin (3.5-5.1) g/dL <Darin Alvarez MD - Last Filed: 05/11/24 17:30> Lab Results 05/11/24 05/11/24 05/11/24 Range/Units 15:46 15:47 16:17 WBC 5.4 (4.5-10.0) K/mm3 RBC 4.17 L (4.2-5.4) M/mm3 Hgb 12.7 (12.0-15.0) g/dL Hct 39.5 (37.0-47.0) % MCV 94.7 (80-100) fl MCH 30.5 (26-34) pg MCHC 32.2 (32-36) g/dl RDW 15.4 H (11.5-14.5) % Plt Count 177 (150-375) k/mm3 MPV 11.0 H (7.4-10.4) fl Immature Gran % (Auto) 0.6 H (0-0.5) % Neut % (Auto) 77.1 H (45.5-73.1) % Lymph % (Auto) 15.2 L (18.3-44.2) % Archer % (Auto) 6.1 (2.6-8.5) % Eos % (Auto) 0.4 (0-4.4) % Baso % (Auto) 0.6 (0.2-1.2) % Lymph # (Auto) 0.82 L (0.9-3.2) K/mm3 Archer # (Auto) 0.3 (0.1-0.6) K/mm3 Eos # (Auto) 0.0 (0-0.3) K/mm3 Baso # (Auto) 0.0 (0.0-0.1) K/mm3 Abs Immat Gran (auto) 0.03 (0.00-0.031) K/mm3 Absolute Neuts (auto) 4.2 (1.3-6.7) K/mm3 Absolute Nucleated RBC 0.000 (0.0-0.012) K/mm3 Nucleated RBC % 0.0 (0.0-0.2) % Sodium 142 (137-145) mmol/L Potassium 3.6 (3.4-5.0) mmol/L Chloride 105 (98-107) mmol/L Carbon Dioxide 24 (22-30) mmol/L Anion Gap 13 H (4-12) mmol/L BUN 16 (7-17) mg/dL Creatinine 0.92 (0.7-1.0) mg/dL Estim Creat Clear Calc 48 ml/min Estimated GFR 60 (59 - ) Glucose 74 (65-110) mg/dL Calcium 10.1 (8.4-10.2) mg/dL Total Bilirubin 1.4 H (0.2-1.3) mg/dL AST 39 H (14-36) U/L ALT 37 H (6-35) U/L Alkaline Phosphatase 83 (38-126) U/L Troponin I 0.016 (0.000-0.034) ng/mL Total Protein 8.0 (6.3-8.2) g/dL Albumin 4.5 (3.5-5.1) g/dL 02/27/25 Range/Units 18:17 WBC (4.5-10.0) K/mm3 RBC (4.2-5.4) M/mm3 Hgb (12.0-15.0) g/dL Hct (37.0-47.0) % MCV (80-100) fl MCH (26-34) pg MCHC (32-36) g/dl RDW (11.5-14.5) % Plt Count (150-375) k/mm3 MPV (7.4-10.4) fl Immature Gran % (Auto) (0-0.5) % Neut % (Auto) (45.5-73.1) % Lymph % (Auto) (18.3-44.2) % Archer % (Auto) (2.6-8.5) % Eos % (Auto) (0-4.4) % Baso % (Auto) (0.2-1.2) % Lymph # (Auto) (0.9-3.2) K/mm3 Archer # (Auto) (0.1-0.6) K/mm3 Eos # (Auto) (0-0.3) K/mm3 Baso # (Auto) (0.0-0.1) K/mm3 Abs Immat Gran (auto) (0.00-0.031) K/mm3 Absolute Neuts (auto) (1.3-6.7) K/mm3 Absolute Nucleated RBC (0.0-0.012) K/mm3 Nucleated RBC % (0.0-0.2) % Sodium (137-145) mmol/L Potassium (3.4-5.0) mmol/L Chloride (98-107) mmol/L Carbon Dioxide (22-30) mmol/L Anion Gap (4-12) mmol/L BUN (7-17) mg/dL Creatinine (0.7-1.0) mg/dL Estim Creat Clear Calc ml/min Estimated GFR (59 - ) Glucose (65-110) mg/dL Calcium (8.4-10.2) mg/dL Total Bilirubin (0.2-1.3) mg/dL AST (14-36) U/L ALT (6-35) U/L Alkaline Phosphatase (38-126) U/L Troponin I 0.019 (0.000-0.034) ng/mL Total Protein (6.3-8.2) g/dL Albumin (3.5-5.1) g/dL <Michael Doe MD - Last Filed: 05/11/24 19:19> Discharge Plan Discharge Clinical Impression: Asymptomatic hypertension <Darin Alvarez MD - Last Filed: 05/11/24 17:30> Patient Disposition: Home, Self-Care <Darin Alvraez MD - Last Filed: 05/11/24 17:30> Condition: Stable <Darin Alvarez MD - Last Filed: 05/11/24 17:30> Instructions: Antibiotic Form <Darin Alvarez MD - Last Filed: 05/11/24 17:30> Additional Instructions: Please call your primary care physician for further management your elevated blood pressures. If you develop chest pain difficulty breathing slurred speech weakness to any extremity please return to the ED for re-evaluation. <Darin Alvarez MD - Last Filed: 05/11/24 17:30> Patient Language: Maltese <Darin Alvarez MD - Last Filed: 05/11/24 17:30> Prescriptions: No Action atorvastatin 20 mg tablet 20 mg PO DAILY cyanocobalamin (vitamin B-12) 1,000 mcg capsule 1,000 mcg PO DAILY Jardiance 10 mg tablet 10 mg PO DAILY metformin 500 mg tablet 500 mg PO BID hydrochlorothiazide 12.5 mg capsule 25 mg PO DAILY hydralazine 10 mg tablet 10 mg PO BID montelukast [Singulair] 10 mg tablet 10 mg PO HS hydralazine 50 mg tablet 50 mg PO BID folic acid 1 mg tablet 1 mg PO DAILY losartan 25 mg tablet 25 mg PO DAILY cholecalciferol (vitamin D3) [Vitamin D3] 25 mcg (1,000 unit) capsule 25 mcg PO BID albuterol 90 mcg/actuation aerosol 90 mcg inhalation DAILY PRN (Reason: cough) metoprolol succinate 50 mg Capsule,Sprinkle,Er 24hr 50 mg PO DAILY <Darin Alvarez MD - Last Filed: 05/11/24 17:30> Follow-up/Referrals: UNKNOWN,DOCTOR [Primary Care Provider] - <Darin Alvarez MD - Last Filed: 05/11/24 17:30>
[2024-05-11] MEDS: LABETALOL HCL INJ 100 MG/20 ML VIAL 20 MG IV PUSH (14:31)
[2024-05-11] MEDS: hydrALAZINE HCL 20 MG/ML VIAL 10 MG IV PUSH (15:29)
[2024-05-11 16:16] LABS: Troponin I 0.016 ng/mL (0.000-0.034)
[2024-05-11 16:21] LABS: Alanine Aminotransferase 37 U/L (6-35); Albumin Level 4.5 g/dL (3.5-5.1); Alkaline Phosphatase 83 U/L (38-126); Anion Gap 13 mmol/L (4-12); Aspartate Amino Transferase 39 U/L (14-36); Bilirubin,Total 1.4 mg/dL (0.2-1.3); Blood Urea Nitrogen 16 mg/dL (7-17); Calcium 10.1 mg/dL (8.4-10.2); Carbon Dioxide 24 mmol/L (22-30); Chloride 105 mmol/L (98-107); Estimated CRCL calculation 48 ml/min; Estimated Glomerular Filt Rate 60; Glucose 74 mg/dL (65-110); Potassium 3.6 mmol/L (3.4-5.0); Sodium 142 mmol/L (137-145)
[2024-05-11 16:27] LABS: Basophils Percent Auto 0.6 % (0.2-1.2); Eosinophils Percent Auto 0.4 % (0-4.4); Hematocrit 39.5 % (37.0-47.0); Hemoglobin 12.7 g/dL (12.0-15.0); Immature Granulocyte Absolute 0.03 K/mm3 (0.00-0.031); Immature Granulocyte Percent A 0.6 % (0-0.5); Lymphocytes Absolute Auto 0.82 K/mm3 (0.9-3.2); Lymphocytes Percent Auto 15.2 % (18.3-44.2); Mean Corpuscular HGB Conc 32.2 g/dl (32-36); Mean Corpuscular Hemoglobin 30.5 pg (26-34); Mean Corpuscular Volume 94.7 fl (80-100); Monocytes Absolute Auto 0.3 K/mm3 (0.1-0.6); Monocytes Percent Auto 6.1 % (2.6-8.5); Neutrophils Absolute Auto 4.2 K/mm3 (1.3-6.7); Neutrophils Percent Auto 77.1 % (45.5-73.1); Platelet Count Result 177 k/mm3 (150-375); Red Blood Count 4.17 M/mm3 (4.2-5.4); Red Cell Distribution Width 15.4 % (11.5-14.5); White Blood Count 5.4 K/mm3 (4.5-10.0)
[2024-05-11] MEDS: hydroCHLOROthiazide 25 MG TABLET PO (16:44)
[2024-05-11] MEDS: hydrALAZINE HCL 50 MG TABLET PO (16:45)
[2024-05-11] MEDS: METOPROLOL SUCCINATE EXT REL 50 MG TABCR PO (16:45)
[2024-05-11 18:48] LABS: Troponin I 0.019 ng/mL (0.000-0.034)
== END 2024-05-11 19:42 | disposition home or self-care (01) ==
PROVIDERS: Emergency Provider Emergency Medicine
DX: I10 Essential (primary) hypertension (principal); J45.909 Unspecified asthma, uncomplicated; E78.5 Hyperlipidemia, unspecified; M48.10 Ankylosing hyperostosis [Forestier], site unspecified; Z90.710 Acquired absence of both cervix and uterus; Z79.84 Long term (current) use of oral hypoglycemic drugs; Z79.899 Other long term (current) drug therapy
CPT/HCPCS: 36415; 70450; 71045; 80053; 84484; 85025; 93005; 96374; 96375; 99284; A9270; J0360